=== PATIENT | female | born 1960 | race Caucasian/White ===

== ENCOUNTER 2020-06-07 03:24 | Emergency (ER) | payer OTHER, SELFPAY ==
--- NOTE | ~2020-06-07 | XR_ITS ---
XR abdomen/kub 1V 06/07/2020 04:19 Indication: Kidney stone Procedure: KUB Comparison: CT dated 06/07/2020 Findings: There is a 5 mm proximal left ureteral stone at the L4 level just above the transverse proc ess. Bowel gas pattern is nonobstructive. Moderate colonic fecal loading. No acute osseous abnormalit y. There are cholecystectomy clips. Impression: 1: 5 mm proximal left ureteral stone. Reviewed, dictated and finalized at location A. Impression: 1: 5 mm proximal left ureteral stone.
--- NOTE | ~2020-06-07 | CT_ITS ---
EXAMINATION: CT abdomen pelvis wo con DATE: 06/07/2020 03:54 INDICATION: Kidney stone TECHNIQUE: Computed tomography (CT) of the abdomen and pelvis was performed without intravenous contr ast. The dose-length product was 1663.80 mGy-cm. Automated exposure control and iterative reconstruct ion technique were employed. COMPARISON: None. FINDINGS: Lung bases unremarkable. No significant pleural or pericardial effusion. Status post cholec ystectomy. There is pneumobilia. There is a 4 mm proximal left ureteral stone with hydronephrosis and moderate perinephric stranding. No abnormal pelvic masses or fluid collections. Nonobstructive bowel gas pattern. The spleen, pancreas, adrenal glands and right kidney are unremarkable. No free air or free fluid. IMPRESSION: 1. Proximal left ureteral stone measuring 4 mm with mild left hydronephrosis and moderate perinephric stranding. Reviewed, dictated and finalized at location A. IMPRESSION: 1. Proximal left ureteral stone measuring 4 mm with mild left hydronephrosis an d moderate perinephric stranding.
[2020-06-07 03:30] VITALS: BP 140/97; PULSE 82; RESP 14; TEMP 36.3; O2SAT 99
--- NOTE | 2020-06-07 03:38 | ED.ABDPAIN ---
HPI - Abdominal Pain General Chief Complaint: Abdominal Pain Stated Complaint: left abd/side pain Time Seen by Provider: 06/07/20 03:28 Source: RN notes reviewed History of Present Illness HPI narrative: Patient presents emergency department from home for abdominal pain. Patient states symptoms began at approximately 0030. Patient states pain is located left lower quadrant radiates around the left flank. Described as sharp and stabbing associated nausea. Patient states she does have a history of previous kidney stones and feels like prior. Denies any fevers or chills chest pain shortness of breath diarrhea or any other symptoms Related Data Allergies Allergy/AdvReac Type Severity Reaction Status Date / Time No Known Allergies Allergy Verified 05/27/19 11:40 Review of Systems Review of Systems: Narrative: Gen.: Denies fevers or chills ENT: Denies congestion Respiratory: Denies shortness of breath or cough CV: Denies chest pain or palpitations GI: HPI denies burning, urgency, frequency or hematuria Musculoskeletal: Denies back pain or muscle pain Neuro: Denies numbness, tingling, weakness or focal weakness Skin: Denies rash Except as documented, all other systems reviewed and negative [facility] Past Medical History Medical History (Updated 06/07/20 @ 06:03 by Francisco Souza DO) Hypertension Social History Social History (Updated 06/07/20 @ 03:39 by Francisco Souza DO) Smoking status: Never smoker Exam Narrative: Exam Narrative: APPEARANCE: No acute distress, nontoxic, resting in bed HEENT: Normocephalic, atraumatic, OMM RESPIRATORY: No respiratory distress, clear to auscultation bilaterally with no rhonchi wheezing or rales CARDIOVASCULAR: RRR s murmur ABDOMINAL: Soft, nondistended, tender palpation of left lower quadrant left upper quadrant, no tenderness right upper quadrant right lower quadrant, no rebound or guarding, left flank tenderness MUSCULOSKELETAl: Moves all extremities. No clubbing, cyanosis or edema. NEURO: Awake and alert. Following commands, speech normal, no focal deficits SKIN:: Warm, dry. Normal Color PSYCHIATRIC: Normal affect/mood Course Course Emergency Course: Called and discussed with urology Dr. Camarillo presentation work-up. Discussed CT scan showing stone as well as UA. At this time if patient's pain is controlled feels patient may be discharged with Cipro and follow-up as an outpatient Patient states he is feeling much better at this time. Discussed options of discharge home versus admission and prefers discharge at this time discussed with patient results of workup and diagnosis. Discussed need for follow-up with primary care, proper use of medication, and reasons to return to the emergency department. Patient understands and agrees to current treatment plan Vital Signs Vital signs: Vital Signs Temperature 97.4 F L 06/07/20 03:30 Pulse Rate 82 06/07/20 03:30 Respiratory Rate 14 06/07/20 03:30 Blood Pressure 140/97 H 06/07/20 03:30 Pulse Oximetry 99 06/07/20 03:30 Temperature 97.4 F L 06/07/20 04:36 Pulse Rate 103 H 06/07/20 05:27 Respiratory Rate 16 06/07/20 05:27 Blood Pressure 135/59 L 06/07/20 05:27 Pulse Oximetry 97 06/07/20 05:27 MDM - Abdominal Pain Lab Data Result diagrams: 06/07/20 03:34 06/07/20 03:34 Labs: Lab Results 06/07/20 06/07/20 06/07/20 Range/Units 03:34 03:34 04:52 WBC 9.5 (4.5-10.0) K/mm3 RBC 4.70 (4.2-5.4) M/mm3 Hgb 14.6 (12.0-15.0) g/dL Hct 42.5 (37.0-47.0) % MCV 90.4 (80-100) fl MCH 31.1 (26-34) pg MCHC 34.4 (32-36) g/dl RDW 11.9 (11.5-14.5) % Plt Count 206 (150-375) k/mm3 MPV 10.4 (7.4-10.4) fl Immature Gran % (Auto) 0.3 (0-0.5) % Neut % (Auto) 78.2 H (45.5-73.1) % Lymph % (Auto) 18.2 L (18.3-44.2) % Jackson % (Auto) 3.2 (2.6-8.5) % Eos % (Auto) 0.0 (0-4.4) % Baso % (Auto) 0.1 L (0.2-1.2) %
[2020-06-07] MEDS: ONDANSETRON INJ 4 MG/2 ML VIAL IV PUSH (03:41)
[2020-06-07 03:42] LABS: Basophils Percent Auto 0.1 % (0.2-1.2); Hematocrit 42.5 % (37.0-47.0); Hemoglobin 14.6 g/dL (12.0-15.0); Immature Granulocyte Absolute 0.03 K/mm3 (0.00-0.031); Immature Granulocyte Percent A 0.3 % (0-0.5); Lymphocytes Absolute Auto 1.72 K/mm3 (0.9-3.2); Lymphocytes Percent Auto 18.2 % (18.3-44.2); Mean Corpuscular HGB Conc 34.4 g/dl (32-36); Mean Corpuscular Hemoglobin 31.1 pg (26-34); Mean Corpuscular Volume 90.4 fl (80-100); Mean Platelet Volume 10.4 fl (7.4-10.4); Monocytes Absolute Auto 0.3 K/mm3 (0.1-0.6); Monocytes Percent Auto 3.2 % (2.6-8.5); Neutrophils Absolute Auto 7.4 K/mm3 (1.3-6.7); Neutrophils Percent Auto 78.2 % (45.5-73.1); Platelet Count Result 206 k/mm3 (150-375); Red Cell Distribution Width 11.9 % (11.5-14.5); White Blood Count 9.5 K/mm3 (4.5-10.0)
[2020-06-07] MEDS: MORPHINE SULFATE (*CRX) 4 MG/ML INJ IV PUSH (03:46)
[2020-06-07] MEDS: SODIUM CHLORIDE 0.9% IV 1,000 ML 999 ML IV CONT (03:47)
[2020-06-07 03:53] LABS: Anion Gap 8 mmol/L (8-16); Blood Urea Nitrogen 16 mg/dL (7-17); Calcium 9.7 mg/dL (8.4-10.2); Carbon Dioxide 28 mmol/L (22-30); Chloride 103 mmol/L (98-107); Estimated CRCL calculation 70 ml/min; Estimated Glomerular Filt Rate 57; Glucose 128 mg/dL (65-105); Potassium 3.8 mmol/L (3.4-5.0); Sodium 139 mmol/L (137-145)
[2020-06-07] MEDS: KETOROLAC 30 MG/ML VIAL (*BKC) IV PUSH (04:06)
[2020-06-07] MEDS: TAMSULOSIN HCL 0.4 MG CAPSULE PO (04:07)
--- NOTE | 2020-06-07 04:12 | PC.NURSE ---
Patient states she is in too much pain at this moment and is unable to urinate.
[2020-06-07 04:16] VITALS: TEMP 36.3
[2020-06-07 04:36] VITALS: TEMP 36.3
[2020-06-07 05:11] LABS: Add Urine Microscopic? YES; Appearance Urine Cloudy (Clear); Bacteria Urine Trace /hpf; Bilirubin Urine Negative (Negative); Blood Urine 3+ (Negative); Color Urine Yellow (Yellow); Glucose Urine UA Negative (Negative); Ketones Urine Negative (Negative); Leukocyte Esterase Ur 2+ LEU/UL (Negative); Mucus Urine Rare /lpf; Nitrate Urine Negative (Negative); Protein Urine 1+ mg/dL (Negative); RBC Urine >75 /hpf (0-2); Specific Grav Ur 1.017 (1.001-1.035); Squamous Epithelial Cell Urine Rare /hpf (Few); Urobilinogen Urine Negative mg/dL (<2.0); WBC Urine >75 /hpf
[2020-06-07 05:27] VITALS: BP 135/59; PULSE 103; RESP 16; O2SAT 97
[2020-06-07 06:22] VITALS: BP 150/54; PULSE 97; RESP 16; TEMP 36.6; O2SAT 100
== END 2020-06-07 06:24 | disposition home or self-care (01) ==
PROVIDERS: Emergency Provider Emergency Medicine; PCP Internal Medicine
DX: N13.2 Hydronephrosis with renal and ureteral calculous obstruction (principal); N39.0 Urinary tract infection, site not specified; I10 Essential (primary) hypertension
CPT/HCPCS: 36415; 74018; 74176; 80048; 81001; 85025; 87077; 87086; 87088; 87186; 96361; 96365; 96375; 99284; A9270; J0696; J1885; J2270; J2405; J7030

== ENCOUNTER → 2023-04-10 11:58 | Outpatient (CLI) | payer OTHER, SELFPAY ==
--- NOTE | ~2023-04-10 | XR_ITS ---
EXAM: XR abdomen/kub 1V DATE: 04/10/2023 12:39 HISTORY: KIDNEY STONE . COMPARISON: X-ray abdomen and CT abdomen pelvis 06/07/2020. FINDINGS: Clear lung bases. Cholecystectomy clips. Normal bowel gas pattern. No organomegaly. No abn ormal abdominal calcification. Lumbar degenerative disc disease. No acute osseous abnormality. IMPRESSION: No radiographic evidence of nephrolithiasis. Reviewed, dictated and finalized at location K.
--- NOTE | ~2023-04-10 | MM_ITS ---
EXAMINATION: MM screening jesse BI w meghann HISTORY: Screening mammogram TECHNIQUE: Craniocaudal and mediolateral oblique 3-D tomosynthesis images were obtained and synthetic 2-D images were generated. CAD analysis was submitted and interpreted. COMPARISON: 11/24/2018, 09/17/2016, 10/13/2014 bilateral screening mammogram examinations BREAST PARENCHYMAL COMPOSITION: There are scattered areas of fibroglandular density. FINDINGS: Approximate 4.8 x 12 mm circumscribed opacity is noted in the outer mid left breast (MLO To mosynthesis image 24/), possibly related to skin lesion at the outer left breast on CC view. Diagno stic left mammogram is recommended, with ultrasound if required.. Otherwise there is no evidence of suspicious mass, calcification, or architectural distortion to sugg est malignancy in either breast. There has been no other suspicious interval change. IMPRESSION: 1. 4.8 x 12 mm circumscribed opacity, outer mid left breast on MLO view 2. Diagnostic left mammograms back or alignment, with ultrasound if required BI-RADS Category 0: Incomplete: Needs additional imaging evaluation. Reviewed, dictated and finalized at location A.
== END ==
PROVIDERS: PCP Obstetrics & Gynecology; Visit Provider Internal Medicine
DX: Z12.31 Encounter for screening mammogram for malignant neoplasm of breast (principal); R92.8 Other abnormal and inconclusive findings on diagnostic imaging of breast; N20.0 Calculus of kidney
CPT/HCPCS: 74018; 77063; 77067

== ENCOUNTER → 2023-05-05 07:40 | Outpatient (CLI) | payer OTHER, SELFPAY ==
--- NOTE | ~2023-05-05 | MM_ITS ---
EXAMINATION: MM diagnostic jesse LT w meghann HISTORY: Left breast mass on screening mammogram TECHNIQUE: Additional 3-D tomosynthesis images of the left breast were performed and synthetic 2-D im ages were generated. CAD analysis was submitted and interpreted. COMPARISON: 04/10/2023, 11/24/2018, 09/17/2016, 10/13/2014 BREAST PARENCHYMAL COMPOSITION: There are scattered areas of fibroglandular density. FINDINGS: With spot compression, the asymmetry in the left breast has an appearance similar to prior mammograms. There has been no suspicious interval change. IMPRESSION: 1. No mammographic evidence of malignancy. 2. Recommend routine screening mammography in one year. BI-RADS Category 2: Benign finding(s). Reviewed, dictated and finalized at location A.
== END ==
PROVIDERS: PCP Obstetrics & Gynecology; Visit Provider Internal Medicine
DX: R92.8 Other abnormal and inconclusive findings on diagnostic imaging of breast (principal)
CPT/HCPCS: 77061; 77065; G0279

== ENCOUNTER 2024-10-23 00:20 | Emergency (ER) | payer OTHER, SELFPAY ==
--- OUTSIDE RECORDS SUMMARY | 2024-10-23 00:22 | XMS_ITS | Data Portability ---
Author Organization [facility] Address [address] [place] [address] [place] [address] Care Team Providers Care Plush Dresser Name Role Phone MARKUS MOTA Primary Care Provider Assessment Encounter Date Assessment Date Assessment LastModified by Organization Details LastModified Time 05/05/2020 05/05/2020 Annual gynecological exam performed. Patient will come back in a year unless there are new symptoms. [email or web address] Not available 05/05/2020 12:39:00 02/14/2023 02/14/2023 Annual gynecological exam performed. Patient will come back in a year unless there are new symptoms. Not available 02/14/2023 09:42:36 Plan of Treatment Reminders Order Date Submit Date Provider Last Modified By Organization Details Last Modified Time Details Appointments None recorded. Lab urinalysis , dipstick 2019 020 [email or web address] [place], [address], [place], [address], 0 16:15:11 Referral gastroente rologist referral - Screening Colonoscop yPlease contact this patient to schedule an appointmen t.If you have any questions, please call [phone].Than k richard,Denia , Referral's 2022 023 [facility], [address], [address], [place], [address], 3 14:35:17 Procedures None recorded. Surgeries None recorded. Imaging DEXA, axial skeleton + vertebral fracture assessment 2019 020 [facility], [address], [place], [address], 1 05:02:55 MAMMO, screening, bilateral 2022 023 [facility], [address], [place], [address], 3 05:01:50 Medication Orders None recorded. Patient TargetsNo targets recorded. Patient Instructions Encounter Date Encounter Id Patient Instructions Last Modified By Organization Details Last Modified Time 05/05/2020 [id number] [email or web address] Not available 13:59:18 Reason for Referral Sampler Radioactive Waste Referral for Screening for malignant neoplasm of colon Screening Colonoscopy Screening ColonoscopyPlease contact this patient to schedule an appointment.If you have any questions, please call [phone].Thank you,Denia Referral's Referring Physician: Carolynn Buchanan, FREIGHT DISPATCHER, Encounter Date: 02/14/2023 Results Created Date Observation Date Name Description Value Unit Range Abnormal Flag Note LastModifiedBy Organization Detail LastModifiedTime 04/16/2004/19/2020 cultu re, urine specimen source Urine - Void Not Available [facility] [employer] [address], [place], [address], 04/19/2020 14:07:09 04/16/20 20 04/19/2020 cultu re, urine culture, urine See Below See Micro biolo gy Repor t Not Available [facility] ([facility] [employer]) [facility] [address], [place], [address], 04/19/2020 14:07:09 04/16/2004/19/2020 cultu re, urine escherichia coli 15,000 -25,00 0 CFU/ml Escher ichia coli Not Available [facility] ([facility] [employer]) [address] [place] [address] [address], [place], [address], 04/19/2020 14:07:09 04/16/20 20 04/19/2020 cultu re, urine sensitivity panel See Below ___ Organ ism E. coli Antib iotic INTER P ___ Amika kristal S Amp/S ulbac russell I Ampic illin R Aztre onam S Cefaz celeste S Cefep lisa S Cefox itin S Cefta zidim e S Ceftr iaxon e S Cefur oxime S Cipro floxa kristal S Ertap enem S Genta micin S Imipe nem S Levof loxac in S Merop enem S Nitro furan toin S Piper acill in/Ta zo S Tetra cycli ne S Tigec yclin e S Tobra mycin S Trime th/Vega lfa R __ S=NAOMI CEPTI BLE I=INT ERMED IATE R=RES ISTAN T Not Available [facility] ([facility]) [address] , [place], [address], 04/19/2020 14:07:09 04/16/20 20 04/16/2020 urina lysis , dipst ick Leukocytes +1 Not Available [facility] [address], [place], [address], 04/16/2020 09:51:34 04/16/20 20 04/16/2020 urina lysis , dipst ick Blood +++ Not Available [place] [address], [place], [address], 04/16/2020 09:51:34 05/05/20 20 05/07/2020 pap, LB Pap test thin prep Negati ve for Intrae pithel ial Lesion or Malign caro normal ACCES SURINDER #: [id number] Sourc e: Cervi damaris/E ndoce rvica l LMP: 09/11 Date Taken : 05/05 Speci men Type: ThinP rep Vial Date Repor roseann: 2019 Clini damaris Data: Cytot ech: Feli Virgen , CT( CP) Date Repor roseann: 2019 Speci men Adequ acy: Satis facto ry for evalu ation Gener al Categ oriza tion: NEGAT [place] FOR INTRA EPITH ELIAL LESIO N OR MALIG JOCELINE Inter preta tion/ Resul t: Atrop hy This speci men has been hyun zed by the ThinP rep Imagi ng Syste m, an inter activ e compu ter syste m which [facility] of ThinP rep Pap Test slide sJu whittaker imagi ng, the slide was revie wed by a Cytot echno logis t and/o r Patho logis t. D N A A S S A Y S R E P O R T TEST NAME RESUL TS ----- ---- ----- -- HPV High Risk Scretish n (TMA) ThinP rep Vial The human papil lomav irus (HPV) High Risk Airam n is an FDA-a pprov ed in-vi tro ampli fied nucle ic acid test for the quali tativ e detec tion of E6/E7 viral mRNA. Resul ts shoul d be corre lated with patie nt prese ntati on, histo ry, cervi damaris cytol ogy and other clini damaris and labor atory findi ngs. See https ://[employer]/s ites/ defau lt/fi 018-0 /- 03095 _002_ 01.pd f for man er infor whitney n. Test perfo rmed by [employer] [facility], d/b/a [facility], [address], [place] [address] , [place]a Crawford ra, , Labor atory Dire tor. HPV High Risk *HPV NOT DETEC ROSEANN (TYPE S 16, 18, 31, 33, 35, 39, 45, 51, 52, 56, 58, 59, 66, 68) *HPV: The human papil lomav irus (HPV) High Risk Airam ahmadi is an FDA-a pprov ed in-vi tro ampli fied nucle ic acid test for the quali tativ e detec tion of E6/E7 viral mRNA. Resul ts kale colbert be corre lated with patitish nt prese ntati on, histo ry, cervi damaris cytol ogy and other clini damaris and labor atory findi ngs. See https ://[employer]/s ites/ defau lt/fi 018-0 /AW- 80535 _002_ 01.pd f for man er infor whitney n. Test perfo rmed by [employer] [facility], d/b/a Abbe rou[facility], [address], [place] [address] , [place] ra, , Labor atory Dire tor. End of Repor t Techn ical servi glenda provi ded by [employer] [facility], d/b/a [facility], [address] [place] [address] Raghu Yost MD, Labor atory Dire tor. Case revie wed and diagn osis rende red at [employer] [facility], d/b/a [facility], [address] [place] [address] Raghu Yost MD, Labor atory Dire tor. CONFI DENTI AL Not Available [facility] ([facility]) [address], [place], [address], 05/07/2020 14:49:49 05/05/20 20 05/07/2020 HPV DNA, high- risk HPV high risk NOT DETECT ED normal Not Available [facility] ([facility]) [address], [place], [address], 05/07/2020 14:49:50 02/15/20 23 02/14/2023 IMAGE GUIDE D PAP AND HPV REGAR DLESS image guided Pap, HPV regardless of Pap result SEE RESULT S BELOW CASE REPOR T: Cytol ogy Gynec ologi damaris Repor t Case: [id number] Autho blanca arechiga Provi jose: Jerry Shah Colle cted: 02/14 1405 WIRE DRAWING SETTER Order ing Locat ion: [place] [facility] Recei rolly: 02/15 1943 First Scree n: Jacinda Bullard, CT Speci men: Scree haritha Pap - Image d, Cervi x STATE MENT OF ADEQU ACY: Satis facto ry for evalu ation Trans forma tion zone compo nent canno t be defin itive ly ident ified due to the prese nce of atrop hy or other hormo nal merino es FINAL DIAGN OSIS: Negat [place] for Intra epith elial Lesio n or Hilary au (NIL) . Atrop hic cell sherley main. Elect sorin carter d by Jacinda Bullard, CT on 2022 at 7:15 AM ----- ----- ----- ----- ----- ----- ----- ----- ----- ----- ----- ----- ----- ----- ----- ----- ----- ---- HPV RESUL TS: HPV mRNA E6/E7 : No HPV mRNA Detec roseann NOTE: This high risk HPV mRNA assay detec ts fourt een high- risk HPV types (16, 18, 31, 33, 35, 39, 45, 51, 52, 56, 58, 59, 66, 68) witho ut diffe renti ation . COMME NT: This speci men was revie wed by a Cytot echno logis t and/o r Patho logis t (as indic ated in this repor t) after evalu ation using the Thinp rep Imagi ng Syste m. CLINI DAMARIS INFOR MATIO N: Menst rual Statu s: LMP (if appli cable ): Clini damaris Histo ry/Pr eviou s Pap: Type of Neopl sachin (if appli cable ): Signi fican t Clini damaris Findi ngs: Other Histo ry: Hormo piter (if appli cable ): PAP EDUCA CANDICE L NOTE: The Pap Test is a scree haritha test with an inher ent false negat [place] rate. Liqui d-bas ed sampl ing may decre ase, but will not elimi nina, false negat [place] resul ts. A negat [place] resul t does not precl ude the prese nce and/o r devel opmen t of disea se, since the prese nce of abnor mal cells in the sampl e depen ds on the locat ion of the lesio n and sampl ing techn ique. Justo nued regul ar scree haritha is the best metho d of cance r preve ntion . If repor roseann cytol ogic findi ng do not corre late with physi damaris and/o r histo rical findi ngs, furth er inves tigat ion is recom devin d, as clini michael hartman nted. Not Available [facility] (Lab) [address], [place], [address], 02/19/2023 08:19:42 04/10/20 23 04/10/2023 imagi ng/di agnos tic resul t No observ ation record ed. [facility] [address], [place], [address], 04/11/2023 10:24:55 04/10/20 23 04/10/2023 imagi ng/di agnos tic resul t No observ ation record ed. [facility] [address], [place], [address], 04/11/2023 10:26:45 04/10/20 23 04/10/2023 imagi ng/di agnos tic resul t No observ ation record ed. [facility] [address], [place], [address], 04/11/2023 10:28:08 05/05/20 23 05/05/2023 imagi ng/di agnos tic resul t No observ ation record ed. [facility] [address], [place], [address], 05/05/2023 15:12:07 05/05/20 23 05/05/2023 MAMMO , diagn ostic , digit al, unila teral No observ ation record ed. [email or web address] [facility] [address], [place], [address], 07/10/2023 14:41:56 Result Notes None recorded. Problems Name Problem SNOMED Code Status Onset Date Resolution Date Notes Provider Name and Address Organization Details Recorded Time Screening for malignant neoplasm of cervix Active 2011 Screening for malignant neoplasms of the cervix;Rec orded Elsewhere: No Locatio n: [facility] rce: EHR Chroni c: N Practice ID: 0001 Billa ble Time: 06:00:00 PM Not Available [facility] 0 18:57:08 Screening for malignant neoplasm of rectum Active 2014 Encounter for screening for malignant neoplasm of rectum;Rec orded Elsewhere: No Locatio n: [facility] rce: EHR Chroni c: N Practice ID: 0001 Billa ble Time: 03:30:00 PM Not Available [facility] 0 18:57:08 Cyst of ovary 58234453 Active 2012 Other and unspecifie d ovarian cyst;Recor ded Elsewhere: No Locatio n: [facility] rce: EHR Chroni c: N Practice ID: 0001 Billa ble Time: 09:30:00 AM Not Available [facility] 0 18:[facility]:[address] Concept Active 2015 Encntr for engine 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 exam (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) (routine) w/o abn findings;R ecorded Elsewhere: No Locatio n: [facility] rce: EHR Chroni c: N Practice ID: 0001 Billa ble Time: 08:30:00 AM Not Available [facility] 0 18:57:09 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;Stepan rded Elsewhere: No Locatio n: [facility] rce: EHR Chroni c: N Practice ID: 0001 Billa ble Time: 03:30:00 PM Not Available [facility] 0 18:57:09 Leukopeni a 45906379 Active 2010 LEUKOCYTOP ENIA NOS;Practi ce ID: 0001 Not Available [facility] 0 18:57:09 Microscop ic hematuria 209590987 Active 2010 HEMATURIA MICROSCOPI C;Practice ID: 0001 Not Available [facility] 0 18:57:09 Specializ ed medical examinati on Active 2010 Routine gynecologi damaris examinatio n;Practice ID: 0001 Not Available [facility] 0 18:57:09 Screening for malignant neoplasm of colon Active 2010 Special screening for malignant neoplasms, colon;Prac jorge ID: 0001 Not Available [facility] 0 18:57:09 Removal of intrauter ine device Active 2011 REMOVAL OF IUD;Practi ce ID: 0001 Not Available [facility] 0 18:57:09 Dysfuncti onal uterine bleeding Active 2012 DUB;Practi ce ID: 0001 Not Available [facility] 0 18:57:09 Radiology result abnormal 200627943 Active 2012 Thickened Endometria l Stripe;Pra ctice ID: 0001 Not Available [facility] 0 18:57:[address] Concept Active 2014 Encntr for general adult medical exam w/o abnormal findings;Jorden falcon ID: 0001 Not Available [facility] 0 18:57:10 Hypertrop hic condition of skin 00338091 Active 2014 Other hypertroph ic disorders of the skin;Pract ice ID: 0001 Not Available [facility] 0 18:57:11 Evaluatio n finding Active 2017 Hematuria, unspecifie d;Practice ID: 0001 Not Available [facility] 0 18:57:[address] Concept Active 2017 Encounter for general adult medical exam w abnormal findings;Jorden falcon ID: 0001 Not Available [facility] 0 18:57:11 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 Procedures Surgical History Date Name Laterality Status Provider Name and Address Organization Details Recorded Time 020 Date of Last [facility] 09:44:40 019 Date of Last [facility]ammogram [facility] 02/14/2023 09:45:29 018 colonoscopy completed Carolynn Buchanan HATTIE- [address], [place], [address], [facility] 02/14/2023 09:55:35 Dilation and Curettage completed [facility] 05/05/2020 12:42:47 Tubal Ligation completed Luz [facility] 05/05/2020 12:42:52 Cholecystectomy completed [facility] 05/05/2020 12:42:58 Hysteroscopy completed [facility] 05/05/2020 12:43:03 resection of polyp completed [facility] 05/05/2020 12:43:16 Imaging Results Imaging Date Name Status LastModified by Organiz ation Details LastModified Time 04/10/2023 imaging/diagnos tic result completed [facility] [address], [place], [address], 04/11/2023 10:24:55 04/10/2023 imaging/diagnos tic result completed [facility] [address], [place], [address], 04/11/2023 10:26:45 04/10/2023 imaging/diagnos tic result completed [facility] [address], [place], [address], 04/11/2023 10:28:08 05/05/2023 imaging/diagnos tic result completed [facility] [address], [place], [address], 05/05/2023 15:12:07 05/05/2023 MAMMO, diagnostic, digital, unilateral completed [address], [place], [address], 07/10/2023 14:41:56 Procedure Notes None recorded. Medical Equipment None Reported. Allergies Allergen ID Allergen Name Allergen Category Reaction Reaction Severity Criticality Documentation Date Start Date Code Code System Note Provider Name and Address Organization Details Recorded Time 1581 codeine medicatio n Not available Not available Not available 04/16/2020 1370 RxNorm Yasmeen Ramires lynn [facility] 0 09:47:37 Medications Name Sig Start Date Stop Date Status Note LastModified by Organization Details LastModified Time carvedilo l 6.25 mg tablet TAKE 1 TABLET BY MOUTH TWICE A DAY active Not Available Not Available No t Available doxycycli ne hyclate 100 mg capsule TAKE 1 CAPSULE BY MOUTH TWICE A DAY 02/14 completed Not Available Not Available Not Available Coreg 3.125 mg tablet take 1 tablet by oral route 2 times every day with food 10/23 completed Prescrib ed Elsewher e: Yes Loca tion: [facility] odify By: [email or web address] mathias DateTime : 05/02/20 12 06:00:00 PM Not Available Not Available Not Available azithromy kristal 250 mg tablet TAKE 2 TABLETS BY MOUTH TODAY, THEN TAKE 1 TABLET DAILY FOR 4 DAYS 02/14 completed Not Available Not Available Not Available Synthroid 125 mcg tablet 02/14 completed Not Available Not Available Not Available Niaspan 500 mg tablet,ex tended release take 1 tablet by oral route every day at bedtime after a low-fat snack 02/14 completed Prescrib ed Elsewher e: Yes Loca tion: [facility]ify By: kyrie Bertrando unter DateTime : 05/02/20 12 06:00:00 PM Not Available Not Available Not Available tramadol 50 mg tablet TAKE 1 TABLET BY MOUTH THREE TIMES A DAY NEEDED (NEED APPOINTM ENT WITH ) active Not Available Not Available No t Available triamcino lone acetonide 0.1 % topical cream APPLY THIN COAT TO AFFECTED AREA TWICE A DAY 02/14 completed Not Available Not Available Not Available Nexium 20 mg capsule,d elayed release take 1 capsule by oral route every day 02/14 completed Prescrib ed Elsewher e: Yes Loca tion: [facility]ify By: kyrie buck Enco unter DateTime : 05/02/20 12 06:00:00 PM Not Available Not Available Not Available benzonata te 100 mg capsule TAKE 1 CAPSULE BY MOUTH THREE TIMES A DAY active Not Available Not Available No t Available esomepraz ole magnesium 40 mg capsule,d elayed release TAKE ONE CAPSULE BY MOUTH ONCE DAILY NEEDED active Not Available Not Available No t Available telmisart an 80 mg tablet 05/05 completed Not Available Not Available Not Available levothyro xine 150 mcg tablet TAKE 1 TABLET BY MOUTH EVERY DAY IN THE MORNING (NEED FOLLOW-U P APPOINTM ENT WITH ) active Not Available Not Available No t Available telmisart an 20 mg tablet 05/05 completed Not Available Not Available Not Available Transderm -Scop 1 mg over 3 days transderm al patch apply 1 patch by transder mal route 02/14 completed Prescrib ed Elsewher e: No Locat ion: [facility] odify By: anabel almaraz DateTime : 01/08/20 13 05:00:00 PM Not Available Not Available Not Available epinephri ne 0.3 mg/0.3 mL injection , auto-inje ctor DIRECTED active Not Available Not Available No t Available methylpre dnisolone 4 mg tablets in a dose pack TAKE 6 TABLETS ON DAY 1 DIRECTED ON PACKAGE AND DECREASE BY 1 TAB EACH DAY FOR A TOTAL OF 6 DAYS active Not Available Not Available No t Available albuterol sulfate HFA 90 mcg/actua tion aerosol inhaler INHALE 2 PUFFS BY MOUTH EVERY 8 HOURS NEEDED. active Not Available Not Available No t Available fluticaso ne propionat e 50 mcg/actua tion nasal spray,naomi pension USE 1 SPRAY INTO THE AFFECTED NOSTRIL( S) ONCE DAILY NEEDED 02/14 completed Not Available Not Available Not Available loratadin e 10 mg tablet 05/05 completed Not Available Not Available Not Available Activella 1 mg-0.5 mg tablet take 1 tablet by oral route every day 02/14 completed Prescrib ed Elsewher e: No Locat ion: [facility] odify By: cmedical Encount er DateTime : 04/01/20 15 11:35:55 AM Not Available Not Available Not Available Vitamins and Minerals tablet active Prescrib ed Elsewher e: Yes Loca tion: [facility] odify By: cmedical Encount er DateTime : 01/08/20 13 05:00:00 PM Not Available Not Available Not Available olmesarta n 40 mg tablet TAKE 1 TABLET BY MOUTH EVERY DAY active Not Available Not Available No t Available nitrofura ntoin monohydra te/macroc rystals 100 mg capsule Take 1 capsule every 12 hours by oral route with meals for 10 days. 05/05 completed Not Available Not Available Not Available Boostrix Tdap 2.5 Lf unit-8 mcg-5 Lf/0.5 mL intramusc ular syringe 05/05 completed Not Available Not Available Not Available Nexium 02/14 completed Not Available Not Available Not Available Activella 0.5 mg-0.1 mg tablet TAKE 1 TABLET DAILY 02/14 completed Prescrib ed Elsewher e: No Locat ion: [facility] odify By: kaylen almaraz DateTime : 12/21/19 18 03:35:26 PM Not Available Not Available Not Available Bystolic 2.5 mg tablet take 2 tablet by oral route every day 02/14 completed Prescrib ed Elsewher e: Yes Loca tion: [facility]ify By: alyx mathias DateTime : 10/23/19 13 10:15:00 AM Not Available Not Available Not Available Bystolic 5 mg tablet 05/05 completed Not Available Not Available Not Available Vitals Date Recorded Body height Body mass index (BMI) Body weight Provider Name and Address Organization Details Last Updated DateTime 02/14/2023 162.56 cm 45 kg/m2 168926.2 g Jaimie Rodrigez [facility] 02/14/2023 09:43:08 Date Recorded Systolic blood pressure Diastolic blood pressure Provider Name and Address Organization Details Last Updated DateTime 02/14/2023 122 mm[Hg] 30 mm[Hg] Carolynn Buchanan, [facility] [address], [place], [address], [facility] 02/14/2023 09:48:18 Date Recorded Body height Body mass index (BMI) Body weight Systolic blood pressure Diastolic blood pressure Provider Name and Address Organization Details Last Updated DateTime 05/05/2020 162.56 cm 47.5 kg/m2 461533.0 9 g 143 mm[Hg] 82 mm[Hg] Luz Hammer [facility] 12:51:45 Social History Question Answer Notes LastModified by Organizat ion Details LastModified Time Tobacco Smoking Status Never Smoker Not Available [facility] 07/14/2020 03:28:11 In The 14 Days Before Symptom Onset, Have You Had Close Contact With A Laboratory-confirm ed COVID-19 While That Case Was Ill? No Information n ot available 02/14/2023 In The 14 Days Before Symptom Onset, Have You Had Close Contact With A Person Who Is Under Investigation For COVID-19 While That Person Was Ill? No Information not available 02/14/2023 Have You Been To An Area Known To Be High Risk For COVID-19? No Information not available 02/14/2023 Sex: Unknown Functional Status None recorded. Mental Status None recorded. Family History Relationship Description Onset Age of this Age Resolved Age Notes LastModified by Organization Details LastModified Time Maternal Aunt Hypertensive disorder [email or web address] Not available 2019 12:41:14 Maternal Aunt Carcinoma in situ of breast [email or web address] Not available 2019 12:41:30 Maternal Aunt Family history of cancer of colon [email or web address] Not available 2019 12:42:01 Maternal Aunt Disorder of thyroid gland [email or web address] Not available 2019 12:42:24 Maternal Aunt Carcinoma in situ of uterus [email or web address] Not available 2019 12:42:34 Mother Hypertensive disorder [email or web address] Not available 2019 12:41:14 Mother Suspected cervical cancer [email or web address] Not available 2019 12:41:48 Mother Disorder of thyroid gland [email or web address] Not available 2019 12:42:24 Maternal Grandmother Hypertensive disorder [email or web address] Not available 2019 12:41:14 Paternal Aunt Suspected cervical cancer [email or web address] Not available 2019 12:41:48 Notes:Maternal aunt: Thyroid disease, Cancer, breast, Cancer, colon, Uterine Cancer, HTN, HD, [place] Maternal grandmother: Hypertension, DMNID Mother: Thyroid disease, Cancer, cervical, Hypertension, A&W Paternal aunt: Cancer, cervical Medical History Condition Response Allergies (Food, seasonal, environmental ) Y Acid Reflux (GERD) Y Thyroid Problems Y Hypertension Y Gynecological History Statement/Question Response Date of Last Colonoscopy Date of Last Mammogram 11/27/2018 Sexually Active? N STIs/STDs N Menses Monthly N HPV Vaccine N Date of Last Pap Smear 05/05/2020 Sexual Problems? N Current Control Method Tubal Ligat ion LMP Unknown Obstetrics History GPAL:G 2 P 0 0 0 2 Type Value Living 2 Total 2 Past Encounters Encounter ID Performer Location Encounter Start Date Encounter Closed Date Diagnosis/Indication Diagnosis SNOMED-CT Code Diagnosis ICD10 Code Diagnosis Note [id number] Jovan Ardon MD [place] [facility] [address],[place] [address] 04/16/2020 09:21:02 04/16/2020 16:26:54 Acute urinary tract infection [id number] N39.0 [id number] Carolynn Buchanan [place] [id number],[place] [address] 05/05/2020 12:31:43 05/05/2020 16:10:06 Gynecologic examination [id number] Z01.419 Take Calcium with Vitamin D 12-1500mg daily. Do monthly self breast exams. It is advised to get annual flu shot in the fall and she could obtain at [facility]. If you haven't received the Tdap vaccine in the last 10 years you should obtain one as well. Have mammogram yearly, bone density every 2-3 years and colonoscop y every 5-10 years depending on findings and history. Engage in daily exercise of low impact aerobic exercise 45-60 minutes 4-5 times weekly. Avoid tobacco and illicit drugs as well as using moderation with alcohol intake less than 1-2 8 oz beverages daily. This lifestyle behavior pattern will lead to less health conditions and longer life span. If BMI greater than 25 weight watchers or dietary consult advised. Questions have been answered. Patient appears to understand instructio ns, but if you have any further questions call or respond to this email Screening for osteoporosis [id number] Z13.820 [id number] Carolynn Buchanan [facility] [address],[place] [address] 02/14/2023 09:26:27 02/14/2023 10:20:25 Gynecologic examination [id number] Z01.419 Take Calcium with Vitamin D 12-1500mg daily. Do monthly self breast exams. It is advised to get annual flu shot in the fall and she could obtain at [facility] or [facility]. If you haven't received the Tdap vaccine in the last 10 years you should obtain one as well. Have mammogram yearly, bone density every 2-3 years and colonoscop y every 5-10 years depending on findings and history. Engage in daily exercise of low impact aerobic exercise 45-60 minutes 4-5 times weekly. Avoid tobacco and illicit drugs as well as using moderation with alcohol intake less than 1-2 8 oz beverages daily. This lifestyle behavior pattern will lead to less health conditions and longer life span. If BMI greater than 25 weight watchers or dietary consult advised. Questions have been answered. Patient appears to understand instructio ns, but if you have any further questions call or respond to this emailPap/h pv sentSTD Screen declinedGe netic Screen discussedC olon Screen OrderedDex a Screen PCPRoutine Labs PCP Screening mammography [id number] Z12.31 Screening for malignant neoplasm of colon [id number] Z12.11 Will order & have PCP manage after this year. 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 05/05/2020 1 [employer] - CHOICE (POS II) [id number] Lotus Antony Theresa [id number] Lotus L Theresa 02/14/2023 1 [employer] - CHOICE (POS II) [id number] Lotus Antony Theresa [id number] Lotus Antony Theresa Notes Date Note Type Note Provider Name and Address Organization Details Recorded Time 05/05/2020 text/html Annual GYNReport ed bypatient.History: no gynecologic complaints Menstrual cycle:Normal menses Urinary symptoms:No hematuria; No incontinence Vulva:No genital lesion Vagina:Normal vaginal discharge Breast:No breast pain; No breast lump; No nipple discharge Current Contraception:BSO for non-cancer indications Sexual complaints:No sexual complaints; No pain during intercourse; Normal libido Menopausal Symptoms:No menopausal symptoms; Normal vaginal lubrication Psychological symptoms:No depression; No anxiety; No PMDD Preventive measures:Encourage self breast examination; Encourage regular exercise; Encourage no tobacco use; Encourage regular mammograms starting age 40; Needs to schedule mammogram; Up to date on colonoscopy screening [facility] [address], [place], [address], [facility] 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 Post-MenopausalRep orted bypatient.Menopaus al Symptoms:no menopausal symptoms; normal vaginal lubrication Vaginal Bleeding:history of menopause having occurred; no history of post menopausal bleeding Urinary Symptoms:no hematuria; no incontinence; no nocturia; no urinary frequency Vulva:no genital lesion; no vulvar atrophy Vagina:normal vaginal discharge; no vaginal atrophy Breast:no breast lump; no nipple discharge; no breast pain Sexual Complaints:no sexual complaints Psychological Symptoms:no depression; no anxiety Preventive Measures:encourage regular mammograms starting age 40; encourage self breast examination; encourage regular exercise; encourage no tobacco use; needs to schedule mammogram; needs to schedule colonoscopy [facility] [address], [place], [address], [facility] 02/14/2023 10:05:58 OBGyn Episode Ob Episode Information Episode Created Date Number of Fetuses Patient Bloodtype Patient rh Status Prepregnancy Weight lbs Domestic Partner Domestic Partner Phone Father Name Client Account Assistant Status 05/05/20 20 1 CLOSED Fetus Data First Name Last Name Admitted to NICU Weight (g) Sex Living Outcome Pediatric Complications Fetus ID Race Codes Race Delivery Type [id number] Vaginal Delivery Neil Calculation Initial Neil Date Initial Exam Date Initial Exam Provider Initial Ultrasound Date Last Menstrual Period Date Ultra Sound Weeks Gestation 0 Eighteen To Twenty Week Neil Update Ultra Sound Date Fundal Height At Umbil Quickening Date Ultra Sound Latest Weeks Gestation Final Neil Confirmed By Final Neil Confirmed Date Final Neil Date Ultra Sound Latest Days Gestation 0 0 Menstrual History Last Menstrual Date Menses Monthly On Bcp Conception Prior Menses Frequency Hcg Plus Date Menarche Onset Age Delivery Information Delivery Date Delivery Type Labor Anesthesia Weeks Gestation Incision Type Labor Labor Length Hrs Delivered By Post Complications Tubal Sterilization Discharge Date Comments 9 Discharge Information Feeding Method Contraceptive Method Maternal HG B and HCT Levels Ob Episode Information Episode Created Date Number of Fetuses Patient Bloodtype Patient rh Status Prepregnancy Weight lbs Domestic Partner Domestic Partner Phone Father Name Client Account Assistant Status 05/05/20 20 1 CLOSED Fetus Data First Name Last Name Admitted to NICU Weight (g) Sex Living Outcome Pediatric Complications Fetus ID Race Codes Race Delivery Type [id number] Vaginal Delivery Neil Calculation Initial Neil Date Initial Exam Date Initial Exam Provider Initial Ultrasound Date Last Menstrual Period Date Ultra Sound Weeks Gestation 0 Eighteen To Twenty Week Neil Update Ultra Sound Date Fundal Height At Umbil Quickening Date Ultra Sound Latest Weeks Gestation Final Neil Confirmed By Final Neil Confirmed Date Final Neil Date Ultra Sound Latest Days Gestation 0 0 Menstrual History Last Menstrual Date Menses Monthly On Bcp Conception Prior Menses Frequency Hcg Plus Date Menarche Onset Age Delivery Information Delivery Date Delivery Type Labor Anesthesia Weeks Gestation Incision Type Labor Labor Length Hrs Delivered By Post Complications Tubal Sterilization Discharge Date Comments 3 Discharge Information Feeding Method Contraceptive Method Maternal HG B and HCT Levels
--- OUTSIDE RECORDS SUMMARY | 2024-10-23 00:22 | XMS_ITS | Data Portability ---
Author Organization [facility] [employer] Address 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 Studies ordered as below. Discussed plan with patient/careg iver, who expressed understanding . Follow up as noted below. Not available 10/21/2022 10:10:50 04/10/2023 04/10/2023 Patient presented for follow up. Studies ordered as below. Discussed plan with patient/careg iver, who expressed understanding . Follow up as noted below. Not available 04/10/2023 09:39:47 08/14/2023 08/14/2023 Patient presented for follow up. Studies ordered as below. Discussed plan with patient/careg iver, who expressed understanding . Follow up as noted below. Not available 08/14/2023 09:43:18 11/20/2023 11/20/2023 Patient presented for follow up. Studies ordered as below. Discussed plan with patient/careg iver, who expressed understanding . Follow up as noted below. Not available 11/20/2023 11:19:05 08/01/2024 08/01/2024 Patient presented for follow up. Studies ordered as below. Discussed plan with patient/careg iver, who expressed understanding . Follow up as noted below. Not available 08/01/2024 12:14:58 Plan of Treatment Reminders Order Date Submit Date Provider Last Modified By Organization Details Last Modified Time Details Appointments ESTABLISH ED PATIENT 15 2024 11:00A M Kim Mota MD Not available Not available Not available Lab CMP, serum or plasma 2022 023 [facility] ([facility]), [address], [place], [facility] [place], [address], 10/28/2022 05:24:11 CBC w/ auto diff 2022 023 [facility] ([facility]), [address], [place], [facility] [place], [address], 10/28/2022 05:24:25 lipid panel w/ direct LDL, serum 2022 023 [facility] ([facility]), [address], [place], [facility] [place], [address], 10/28/2022 05:24:12 HbA1c (hemoglob in A1c), blood 2022 023 [facility] ([facility]), [address], [place], [facility] [place], [address], 10/21/2022 11:00:45 TSH + free T4, serum 2022 023 [facility] ([facility]), [address], [place] [address], [facility] [place], [address], 10/28/2022 05:24:31 CMP, serum or plasma 2022 023 [facility] ([facility]), [address], [place] [address], [facility] [place], [address], 04/17/2023 05:32:29 CBC w/ auto diff 2022 023 [facility] ([facility]), [address], [place], [place], [address], 04/17/2023 05:32:15 lipid panel w/ direct LDL, serum [facility] [address], [address], [place], [address], 04/17/2023 05:32:35 HbA1c (hemoglob in A1c), blood 2022 023 [employer] [facility] ([facility]), [address], [address], [place], [address], 04/10/2023 10:20:49 TSH + free T4, serum [facility]22 023 [facility] [address], [place], [address], 04/17/2023 05:32:33 CMP, serum or plasma 2022 023 [employer] ([facility]), [address], [address], [place], [address], 08/21/2023 05:32:28 CBC w/ auto diff 2022 023 [employer] [facility] ([facility]), [address], [address], [place], [address], 08/21/2023 05:32:31 lipid panel w/ direct LDL, serum 2022 023 [facility] [address], [address], [place], [address], 08/21/2023 05:32:42 ige, total, serum 2022 023 [facility]), [address], [place], [address], 08/14/2023 10:25:53 TSH + free T4, serum 2022 023 [facility]), [address], [facility] A, [place], [address], 08/21/2023 05:32:51 CMP, serum or plasma 2023 024 [facility], [address], [place], [address], 11/27/2023 09:13:51 CBC w/ auto diff 2023 024 [facility], [address] [place], [address], 01/04/2024 00:25:56 lipid panel w/ direct LDL, serum 2023 024 [facility], [address] [place], [address], 11/27/2023 04:05:25 ige, total, serum 2023 024 [facility], [address] [place], [address], 11/27/2023 09:13:54 TSH + free T4, serum 2023 024 [facility], [address] [place], [address], 11/27/2023 04:05:25 HbA1c (hemoglob in A1c), blood 2023 024 [facility], [address] [place], [address], 08/01/2024 13:13:34 CMP, serum or plasma 2023 024 [facility], [address] [place], [address], 08/08/2024 04:06:11 CBC w/ auto diff 2023 024 [facility], [address] [place], [address], 08/08/2024 04:06:12 lipid panel w/ direct LDL, serum 2023 024 [facility], [address] [place], [address], 08/08/2024 04:06:12 TSH + free T4, serum 2023 024 [facility], [address] [place], [address], 08/08/2024 04:06:[address] referral 2022 023 ALL[facility] Gonzalez, [address], [place], [address], 11/18/2022 05:23:58 gynecolog ist referral 2022 023 ALLY Silva MD, [address], [place], [address], 11/18/2022 05:23:26 gastroent erologist referral 2022 023 ALLY Santiago MD, [address], [address], [address], 10/16/2023 04:01:39 gastroent erologist referral 2022 023 ALLY Santiago MD, [address], [address], [address], 04/04/2024 04:12:[address] referral 2022 023 ALLY Gonzalez, [address], [place], [address], 09/13/2023 05:24:35 gastroent erologist referral 2022 023 ALLY Santiago MD, [address], [place], [address], 08/08/2024 04:04:[address] referral 2023 024 ALLY Lisa, [address], [place], [address], 12/18/2023 04:05:57 cardiolog ist referral 2023 024 [email or web address] Shmuel Mcmahan MD, [address], [place], [address], 11/20/2023 12:21:36 gastroent erologist referral 2023 024 [email or web address] Hardik Santiago MD, [address], [place], [address], 11/20/2023 12:21:36 gynecolog ist referral 2023 024 ALLY Silva MD, [address], [place], [address], 08/29/2024 05:35:57 cardiolog ist referral 2023 024 NEIL Rodriguez, [address], [place], [address], 08/01/2024 13:35:[address] referral 2023 024 ALLY Gonzalez, [address], [place], [address], 08/29/2024 05:35:57 gastroent erologist referral 2023 024 ENIL Santiago MD, [address], [place], [address], 08/01/2024 13:29:17 Procedures None recorded. Surgeries None recorded. Imaging MAMMO, screening , digital, bilateral 2022 023 [facility], [address], [place], [address], 11/04/2022 05:26:20 XR, kidney + ureter + bladder 2022 023 [facility], [address], [place], [address], 04/10/2023 17:27:08 electroca rdiogram 2022 023 [facility] [employer] [facility], [facility], [address], [place], [address], 10/26/2022 23:12:41 US, echocardi ogram 2022 023 [facility] [employer] [facility], [facility], [address], [place], [address], 11/23/2022 15:22:09 MAMMO, screening , digital, bilateral 2022 023 [facility], [address], [place], [address], 04/10/2023 17:18:36 US, echocardi ogram 2022 023 [facility] [employer] [facility], [facility], [address], [place], [address], 04/10/2023 17:18:50 electroca rdiogram 2023 024 [facility] [employer] [facility], [facility], [address], [place], [address], 11/22/2023 08:58:14 US, echocardi ogram 2023 024 [facility] [employer] [facility], [facility], [address], [place], [address], 11/20/2023 19:21:49 MAMMO, screening , digital, bilateral 2023 024 [facility], [address], [place], [address], 08/15/2024 06:09:08 XR, knee, 3 view 2023 024 [facility], [address], [place], [address], 08/08/2024 04:06:13 XR, kidney + ureter + bladder 2023 024 [facility], [address], [place], [address], 08/15/2024 06:09:08 Medication Orders albuterol sulfate HFA 90 mcg/actua tion aerosol inhaler 2022 023 [id number], [address] [facility], [place], [address], 10/21/2022 10:55:56 EpiPen 2-Abran 0.3 mg/0.3 mL injection , auto-inje ctor 2022 023 [facility] [address], [address] [place], [address], 10/21/2022 10:55:56 felodipin e ER 2.5 mg tablet,ex tended release 24 hr 2022 023 [facility] [address] [facility], [address] [place], [address], 04/10/2023 10:15:53 Voltaren Arthritis Pain 1 % topical gel 2022 023 [facility] [address] [facility], [address] [place], [address], 04/10/2023 10:15:52 felodipin e ER 2.5 mg tablet,ex tended release 24 hr 2022 023 [facility] [address] [facility], [facility] [place], [address], 08/14/2023 10:24:43 duloxetin e 30 mg capsule,d elayed release 2022 023 m[facility]semajuda [facility] [address] [facility], [address] [facility], [place], [address], 11/20/2023 11:49:52 fluticaso ne propionat e 50 mcg/actua tion nasal spray,naomi pension 2022 023 [facility] [address] [facility], [address], [place], [address], 08/14/2023 10:24:46 esomepraz ole magnesium 20 mg capsule,d elayed release 2022 023 [facility] [address] [facility], [address] [place] [address], [place], [address], 08/14/2023 10:24:44 duloxetin e 60 mg capsule,d elayed release 2023 024 [facility] [id number] [facility], [address] [place] [address], [place], [address], 11/20/2023 11:52:01 meclizine 12.5 mg tablet 2023 024 [facility] [address] [facility], [facility], [place], [address], 08/01/2024 13:13:18 Zepbound 2.5 mg/0.5 mL subcutane ous pen injector 2023 024 [facility] [address] In [place] [address] [facility], [place], [address], 09/10/2024 11:52:23 Voltaren Arthritis Pain 1 % topical gel 2023 024 [facility] [id number] [facility], [address] [place] [address], [place], [address], 08/01/2024 13:12:47 Patient TargetsNo targets recorded. Patient Instructions Encounter Date Encounter Id Patient Instructions Last Modified By Organization Details Last Modified Time 10/21/2022 [id number] mammogram: about this test mshenouda Not available 10/21/2022 10:55:52 arthritis: care instructions mshenouda Not available 10/21/2022 10:55:52 osteoarthritis: care instructions mshenouda Not available 10/21/2022 10:55:52 kidney stone: ca re instructions mshenouda Not available 10/21/2022 10:55:52 learning about d iet for kidney stone prevention mshenouda Not available 10/21/2022 10:55:51 managing your allergies: care instructions mshenouda Not available 10/21/2022 10:55:52 seasonal allergi es: care instructions mshenouda Not available 10/21/2022 10:55:51 gastroesophageal reflux disease (GERD): care instructions mshenouda Not available 10/21/2022 10:55:52 high cholesterol : care instructions mshenouda Not available 10/21/2022 10:55:51 body mass index: care instructions mshenouda Not available 10/21/2022 10:55:52 learning about healthy weight mshenouda Not available 10/21/2022 10:55:52 controlling your asthma: care instructions mshenouda Not available 10/21/2022 10:55:53 learning about asthma mshenouda Not available 10/21/2022 10:55:51 spirometry testing* [facility] Not availa ble 10/21/2022 12:52:38 hypothyroidism: care instructions mshenouda Not available 10/21/2022 10:55:51 living will mshenouda Not available 10/12 10:51:25 04/10/2023 [id number] mammogram: about this test mshenouda Not available 04/10/2023 10:15:30 kidney stone: ca re instructions mshenouda Not available 04/10/2023 10:15:29 learning about d iet for kidney stone prevention mshenouda Not available 04/10/2023 10:15:29 hand arthritis: exercises mshenouda Not available 04/10/2023 10:15:28 gastroesophageal reflux disease (GERD): care instructions mshenouda Not available 04/10/2023 10:15:29 high cholesterol : care instructions mshenouda Not available 04/10/2023 10:15:30 controlling your asthma: care instructions mshenouda Not available 04/10/2023 10:15:29 learning about asthma mshenouda Not available 04/10/2023 10:15:30 spirometry testing* [facility]Y Not availa ble 04/10/2023 14:53:56 body mass index: care instructions mshenouda Not available 04/10/2023 10:15:30 learning about healthy weight mshenouda Not available 04/10/2023 10:15:30 hypothyroidism: care instructions mshenouda Not available 04/10/2023 10:15:29 08/14/2023 [id number] mammogram: about this test mshenouda Not available 08/14/2023 10:24:[address] Biopsy: About This Test mshenouda Not available 08/14/2023 10:24:29 high cholesterol : care instructions mshenouda Not available 08/14/2023 10:24:28 body mass index: care instructions mshenouda Not available 08/14/2023 10:24:29 learning about healthy weight mshenouda Not available 08/14/2023 10:24:28 controlling your asthma: care instructions mshenouda Not available 08/14/2023 10:24:28 learning about asthma mshenouda Not available 08/14/2023 10:24:28 hypothyroidism: care instructions mshenouda Not available 08/14/2023 10:24:29 11/20/2023 [id number] arthritis: care instructions mshenouda Not available 11/20/2023 11:51:55 osteoarthritis: care instructions mshenouda Not available 11/20/2023 11:51:54 mammogram: about this test mshenouda Not available 11/20/2023 11:51:54 managing your allergies: care instructions mshenouda Not available 11/20/2023 11:51:55 seasonal allergi es: care instructions mshenouda Not available 11/20/2023 11:51:[address] Biopsy: About This Test mshenouda Not available 11/20/2023 11:51:55 body mass index: care instructions mshenouda Not available 11/20/2023 11:51:56 learning about healthy weight mshenouda Not available 11/20/2023 11:51:54 kidney stone: ca re instructions mshenouda Not available 11/20/2023 11:51:55 learning about d iet for kidney stone prevention mshenouda Not available 11/20/2023 11:51:53 gastroesophageal reflux disease (GERD): care instructions mshenouda Not available 11/20/2023 11:51:56 high cholesterol : care instructions mshenouda Not available 11/20/2023 11:51:55 controlling your asthma: care instructions mshenouda Not available 11/20/2023 11:51:55 learning about asthma mshenouda Not available 11/20/2023 11:51:54 hypothyroidism: care instructions mshenouda Not available 11/20/2023 11:51:56 living will mshenouda Not available 11/09 11:54:49 08/01/2024 [id number] arthritis: care instructions mshenouda Not available 08/01/2024 13:12:42 mammogram: about this test mshenouda Not available 08/01/2024 13:12:42 benign paroxysma l positional vertigo (bppv): care instructions mshenouda Not available 08/01/2024 13:13:[address] Biopsy: About This Test mshenouda Not available 08/01/2024 13:12:41 body mass index: care instructions mshenouda Not available 08/01/2024 13:12:42 learning about healthy weight mshenouda Not available 08/01/2024 13:12:41 kidney stone: ca re instructions mshenouda Not available 08/01/2024 13:12:41 learning about d iet for kidney stone prevention mshenouda Not available 08/01/2024 13:12:40 gastroesophageal reflux disease (GERD): care instructions mshenouda Not available 08/01/2024 13:12:41 high cholesterol : care instructions mshenouda Not available 08/01/2024 13:12:41 learning about asthma mshenouda Not available 08/01/2024 13:12:40 spirometry testing* ALLY Not availa ble 08/01/2024 13:24:07 hypothyroidism: care instructions mshenouda Not available 08/01/2024 13:12:41 Reason for Referral Roll Reclaimer Referral for Aguila ign hypertension Referring Physician: Kim Mota Internal Medicine, Encounter Date: 10/21/2022 Spinning Machine Tender Referral for Sc reening for malignant neoplasm of cervix Referring Physician: Kim Mota Internal Medicine, Encounter Date: 10/21/2022 Laboratory Chemist Referral for Screening for malignant neoplasm of colon Referring Physician: Kim Mota Internal Medicine, Encounter Date: 10/21/2022 Laboratory Chemist Referral for Screening for malignant neoplasm of colon Referring Physician: Kim Mota Internal Medicine, Encounter Date: 04/10/2023 Laboratory Chemist Referral for Screening for malignant neoplasm of colon Referring Physician: Kim Mota Internal Medicine, Encounter Date: 08/14/2023 Roll Reclaimer Referral for Aguila ign hypertension Referring Physician: Kim Mota Internal Medicine, Encounter Date: 08/14/2023 [employer] Supervisor Referral for Le ft ventricular hypertrophy Referring Physician: Kim Mota Internal Medicine, Encounter Date: 11/20/2023 Laboratory Chemist Referral for Screening for malignant neoplasm of colon Referring Physician: Kim Mota Internal Medicine, Encounter Date: 11/20/2023 Roll Reclaimer Referral for Aguila ign hypertension Referring Physician: Kim Mota Internal Medicine, Encounter Date: 11/20/2023 [employer] Supervisor Referral for El ectrocardiogram abnormal Referring Physician: Kim Mota Internal Medicine, Encounter Date: 08/01/2024 Spinning Machine Tender Referral for Sc reening for malignant neoplasm of cervix Referring Physician: Kim Mota Internal Medicine, Encounter Date: 08/01/2024 Laboratory Chemist Referral for Screening for malignant neoplasm of colon Referring Physician: Kim Mota Internal Medicine, Encounter Date: 08/01/2024 Roll Reclaimer Referral for Aguila ign hypertension Referring Physician: Kim Mota, Internal Medicine, Encounter Date: 08/01/2024 Results Created Date Observation Date Name Description Value Unit Range Abnormal Flag Note LastModifiedBy Organization Detail LastModifiedTime 10/21/1910/21/2022 rafiq metry testi ng* Spirometry Not Available [facility], [facility] [address], [place], [address], 10/21/2022 10:49:31 04/10/20 23 04/10/2023 rafiq metry testi ng* Spirometry Not Available [facility], [facility] [address], [place], [address], 04/10/2023 10:14:52 11/20/19 24 11/20/2023 CBC WITH AUTO- DIFFE RENTI AL WBC 6.9 10*3/ uL 3.4-10 .8 Not Available [facility] [address], [place], [address], 11/27/2023 09:13:50 11/20/19 24 11/20/2023 CBC WITH AUTO- DIFFE RENTI AL RBC 4.73 10*6/ uL 3.80-5 .30 Not Available [facility] [address], [place], [address], 11/27/2023 09:13:50 11/20/19 24 11/20/2023 CBC WITH AUTO- DIFFE RENTI AL HGB 14.5 g/dL 11.1-1 5.9 Not Available [facility] [address], [place], [address], 11/27/2023 09:13:50 11/20/19 24 11/20/2023 CBC WITH AUTO- DIFFE RENTI AL HCT 43.2 % 34.0-4 6.6 Not Available [facility] [address], [place], [address], 11/27/2023 09:13:50 11/20/19 24 11/20/2023 CBC WITH AUTO- DIFFE RENTI AL MCV 91 fL 79-97 Not Available [facility] [address], [place], [address], 11/27/2023 09:13:50 11/20/19 24 11/20/2023 CBC WITH AUTO- DIFFE RENTI AL MCH 30.7 pg 26.6-3 3.0 Not Available [facility] [address] [facility] [address] [facility] [address] [address], [place], [address], 11/27/2023 09:13:50 11/20/19 24 11/20/2023 CBC WITH AUTO- DIFFE RENTI AL MCHC 33.6 g/dL 31.5-3 5.7 Not Available [facility] [address], [place], [address], 11/27/2023 09:13:50 11/20/19 24 11/20/2023 CBC WITH AUTO- DIFFE RENTI AL RDW 12.3 % 11.5-1 4.5 Not Available [facility] [address] [facility] [address], [place], [address], 11/27/2023 09:13:50 11/20/19 24 11/20/2023 CBC WITH AUTO- DIFFE RENTI AL platelets 184 10*3/ uL 150-40 0 Not Available [facility] [address] [facility] [address], [place], [address], 11/27/2023 09:13:50 11/20/19 24 11/20/2023 CBC WITH AUTO- DIFFE RENTI AL MPV 13 fL 9-13 Not Available [facility] [address], [place], [address], 11/27/2023 09:13:50 11/20/19 24 11/20/2023 CBC WITH AUTO- DIFFE RENTI AL neutrophils 62.6 % 40.0-7 4.0 Not Available [facility] [address] [facility] [address], [place], [address], 11/27/2023 09:13:50 11/20/19 24 11/20/2023 CBC WITH AUTO- DIFFE RENTI AL absolute neutrophils 4.29 10*3/ uL 1.40-7 .00 Not Available [facility] [address] [facility] [address], [place], [address], 11/27/2023 09:13:50 11/20/19 24 11/20/2023 CBC WITH AUTO- DIFFE RENTI AL lymphocytes 30.7 % 14.0-4 6.0 Not Available [facility] [address] [facility] [address], [place], [address], 11/27/2023 09:13:50 11/20/19 24 11/20/2023 CBC WITH AUTO- DIFFE RENTI AL absolute lymphocytes 2.10 10*3/ uL 0.70-3 .10 Not Available [facility] [address] [facility] [address], [place], [address], 11/27/2023 09:13:50 11/20/19 24 11/20/2023 CBC WITH AUTO- DIFFE RENTI AL monocytes 6.3 % 4.0-12 .0 Not Available [facility] [address] [facility] [address], [place], [address], 11/27/2023 09:13:50 11/20/19 24 11/20/2023 CBC WITH AUTO- DIFFE RENTI AL absolute monocytes 0.43 10*3/ uL 0.10-0 .90 Not Available [facility] [address] [facility] [address], [place], [address], 11/27/2023 09:13:50 11/20/19 24 11/20/2023 CBC WITH AUTO- DIFFE RENTI AL eosinophils 0.0 % 0.0-5. 0 Not Available [facility] [address], [place], [address], 11/27/2023 09:13:50 11/20/19 24 11/20/2023 CBC WITH AUTO- DIFFE RENTI AL absolute eosinophils 0.00 10*3/ uL 0.00-0 .40 Not Available [facility] [address] [facility] [address], [place], [address], 11/27/2023 09:13:50 11/20/19 24 11/20/2023 CBC WITH AUTO- DIFFE RENTI AL basophils 0.1 % 0.0-3. 0 Not Available [facility] [address] [facility] [address], [place], [address], 11/27/2023 09:13:50 11/20/19 24 11/20/2023 CBC WITH AUTO- DIFFE RENTI AL absolute basophils 0.01 10*3/ uL 0.00-0 .20 Not Available [facility] [address] [facility] [address], [place], [address], 11/27/2023 09:13:50 11/20/19 24 11/20/2023 CBC WITH AUTO- DIFFE RENTI AL imm. gran. 0.3 % 0.0-2. 0 Not Available [facility] [address] [facility] [address], [place], [address], 11/27/2023 09:13:50 11/20/19 24 11/20/2023 CBC WITH AUTO- DIFFE RENTI AL abs. imm. gran. 0.02 10*3/ uL 0.00-0 .10 Not Available [facility] [address] [facility] [address], [place], [address], 11/27/2023 09:13:50 11/20/19 24 11/20/2023 COMPR EHENS [place] METAB OLIC PANEL sodium 143 mmol/ L 134-14 4 Not Available [facility] [address] [facility] [address], [place], [address], 11/27/2023 09:13:51 11/20/19 24 11/20/2023 COMPR [place] MET[place]IC PANEL potassium 4.5 mmol/ L 3.5-5. 2 Not Available [facility] [address] [facility] [address], [place], [address], 11/27/2023 09:13:51 11/20/19 24 11/20/2023 COMPR [place] MET[place] OLIC PANEL chloride 105 mmol/ L 97-108 Not Available [facility] [address] [facility] [address], [place], [address], 11/27/2023 09:13:51 11/20/19 24 11/20/2023 COMPR [place] METAB OLIC PANEL carbon dioxide (co2) 30.0 mmol/ L 18.0-2 9.0 high Not Available [facility] [address] [facility] [address], [place], [address], 11/27/2023 09:13:51 11/20/19 24 11/20/2023 COMPR [place] METAB OLIC PANEL glucose 96 mg/dL 65-99 Gogo l Fasti ng: < 100 mg/dL Impai red Fasti n - 125 mg/dL Diagn ostic of Diabe sheryl: => 126 mg/dL Ameri can [facility] n, 2007 Not Available [facility] [address] [facility] [address], [place], [address], 11/27/2023 09:13:51 11/20/19 24 11/20/2023 COMPR [place] MET[place] OLIC PANEL urea nitrogen (BUN) 7 mg/dL 8-23 low Not Available [facility] [address] [facility] [address], [place], [address], 11/27/2023 09:13:51 11/20/19 24 11/20/2023 COMPR [place] MET[place]IC PANEL creatinine 0.79 mg/dL 0.57-1 .00 Not Available [facility] [address], [place], [address], 11/27/2023 09:13:51 11/20/19 24 11/20/2023 COMPR [place] MET[place]IC PANEL eGFR for nonafrican AM 73 mL/mi nute/ 1.73_ m2 >59 Not Available [facility] [address], [place], [address], 11/27/2023 09:13:51 11/20/19 24 11/20/2023 COMPR [place] MET[place]IC PANEL eGFR for AM 89 mL/mi nute/ 1.73_ m2 >59 MDRD Study Equat ion: The calcu lated GFR is NOT appli cable for pedia tric (< 18 years old) and > 70 year old patie nts and patie nts that are NOT of [place] . Not Available [facility] [address], [place], [address], 11/27/2023 09:13:51 11/20/19 24 11/20/2023 COMPR [place] MET[place]IC PANEL calcium 9.7 mg/dL 8.7-10 .3 Not Available [facility] [address] [facility] [address], [place], [address], 11/27/2023 09:13:51 11/20/19 24 11/20/2023 COMPR [place] MET[place]IC PANEL protein, total 6.5 gm/dL 6.4-8. 3 Not Available [facility] [address], [place], [address], 11/27/2023 09:13:51 11/20/19 24 11/20/2023 COMPR [place] MET[place] OLIC PANEL albumin 4.4 gm/dL 3.5-5. 2 Not Available [facility] [address] [facility] [address], [place], [address], 11/27/2023 09:13:51 11/20/19 24 11/20/2023 COMPR [place] MET[place]IC PANEL bilirubin, total 0.80 mg/dL 0.00-1 .20 Not Available [facility] [address] [facility] [address], [place], [address], 11/27/2023 09:13:51 11/20/19 24 11/20/2023 COMPR [place] MET[place]IC PANEL alkaline phosphatase (ALP) 70 U/L 39-117 Not Available [facility] [address] [facility] [address], [place], [address], 11/27/2023 09:13:51 11/20/19 24 11/20/2023 COMPR [place]IC PANEL aspartate aminotransfe rase (AST) 21 U/L 0-32 Not Available [facility] [address] [facility] [address], [place], [address], 11/27/2023 09:13:51 11/20/19 24 11/20/2023 COMPR [place] MET[place]IC PANEL alanine aminotransfe rase (ALT) 22 U/L 0-33 Not Available [facility] [address] [facility] [address], [place], [address], 11/27/2023 09:13:51 11/20/19 24 11/20/2023 COMPR [place]IC PANEL A/G ratio (calculated) 2.1 ratio 1.0-2. 7 Not Available [facility] [address] [facility] [address], [place], [address], 11/27/2023 09:13:51 11/20/19 24 11/20/2023 COMPR [place] MET[place]IC PANEL globulin (calculated) 2.1 gm/dL 1.5-3. 8 Not Available [place] [id number] [facility] [address], [place], [address], 11/27/2023 09:13:51 11/20/19 24 11/20/2023 COMPR [place] MET[place]IC PANEL BUN/creatini ne ratio (calculated) 8.9 ratio 8.0-20 .0 Not Available [facility] [address] [facility] [address], [place], [address], 11/27/2023 09:13:51 11/20/19 24 11/20/2023 COMPR [place]IC PANEL serum hemolysis index NORMAL index normal Not Available [facility] [address] [facility] [address], [place], [address], 11/27/2023 09:13:51 11/20/19 24 11/20/2023 FREE T4 thyroxine (T4), free 1.55 NG/dL 0.82-1 .77 Not Available [facility] [address] [facility] [address], [place], [address], 11/27/2023 09:13:52 11/20/19 24 11/20/2023 LIPID PANEL W/ CALC. LDL cholesterol, total 182 mg/dL 100-19 9 Not Available [facility] [address] [facility] [address], [place], [address], 11/27/2023 09:13:53 11/20/19 24 11/20/2023 LIPID PANEL W/ CALC. LDL HDL cholesterol 40 mg/dL =>40 Not Available [facility] [address] [facility] [address], [place], [address], 11/27/2023 09:13:53 11/20/19 24 11/20/2023 LIPID PANEL W/ CALC. LDL LDL cholesterol (calculated) 114 mg/dL 0-99 high Not Available [facility] [address] [facility] [address], [place], [address], 11/27/2023 09:13:53 11/20/19 24 11/20/2023 LIPID PANEL W/ CALC. LDL triglyceride s 139 mg/dL 50-149 Not Available [facility] [address] [facility] [address], [place], [address], 11/27/2023 09:13:53 11/20/19 24 11/20/2023 LIPID PANEL W/ CALC. LDL chol/HDL ratio (calculated) 4.55 ratio 0.00-5 .00 Not Available [facility] [address] [facility] [address], [place], [address], 11/27/2023 09:13:53 11/20/19 24 11/20/2023 LIPID PANEL W/ CALC. LDL VLDL cholesterol (calculated) 28 mg/dL 5-40 Not Available [facility] [address] [facility] [address], [place], [address], 11/27/2023 09:13:53 11/20/19 24 11/20/2023 THYRO ID-ST IM. HORMO NE (TSH) , HIGH- SENSI TIVE thyroid-stim . hormone (TSH), hs 0.62 uIU/m L 0.27-4 .20 Not Available [facility] [address] [facility] [address], [place], [address], 11/27/2023 09:13:53 11/20/19 24 11/27/2023 IMMUN OGLOB ULIN E TOTAL immunoglobul in E, total 8 IU/mL 6-495 normal Not Available [facility] [address] [facility] [address], [place], [address], 11/27/2023 09:13:54 08/01/20 24 08/01/2024 rafiq metry testi ng* Spirometry Not Available [facility], [facility] [address] [facility] [address], [place], [address], 08/01/2024 13:06:42 10/21/19 23 10/21/2022 elect jesu pearcegr am No observ ation record ed. mshenouda [facility], [facility] [address] [facility] [address], [place], [address], 04/10/2023 10:05:14 10/21/19 23 11/23/2022 US, echo ardio gram No observ ation record ed. [facility], [facility] [address], [place], [address], 04/10/2023 10:05:14 10/25/19 23 10/21/2022 elect jesu pearcegr am No observ ation record ed. [facility] Not Available 2022 10:05:14 04/10/20 23 04/10/2023 US, echo ardio gram No observ ation record ed. [facility], [facility] [address], [place], [address], 08/14/2023 10:12:51 04/10/20 rafiq metry testi ng* No observ ation record ed. [facility], [facility] [address], [place], [address], 08/14/2023 10:12:51 04/10/20 23 04/10/2023 MAMMO , scree haritha, digit al, bilat eral No observ ation record ed. [facility] [address], [place], [address], 08/14/2023 10:12:52 04/10/20 23 04/10/2023 XR, kidne y + urete r + bladd er No observ ation record ed. [facility] [address], [place], [address], 08/14/2023 10:12:52 05/05/20 23 05/05/2023 MAMMO , diagn ostic , digit al, unila teral No observ ation record ed. [facility] [address], [place], [address], 08/14/2023 10:16:55 11/20/19 24 11/20/2023 US, echoc ardio gram No observ ation record ed. [facility] [address], [place], [address], 08/01/2024 13:02:43 11/20/19 24 11/22/2023 elect rocar diogr am No observ ation record ed. [facility] [address], [place], [address], 08/01/2024 13:02:43 11/22/19 24 11/20/2023 elect rocar diogr am No observ ation record ed. [facility] [address], [place], [address], 08/01/2024 13:02:43 01/17/20 24 01/03/2024 US, echoc ardio gram No observ ation record ed. [facility] [address], [place], [address], 08/01/2024 13:02:43 01/24/20 24 01/03/2024 US, echoc ardio gram No observ ation record ed. [facility] [address], [place], [address], 08/01/2024 13:02:42 Result Notes None recorded. Problems Name Problem SNOMED Code Status Onset Date Resolution Date Notes Provider Name and Address Organization Details Recorded Time Asthma 750271615 Teresa bailey [facility] 6 09:16:52 Benign hypertensio n 08373672 Teresa bailey [facility] 6 09:16:58 Gastroesoph ageal reflux disease 948190097 Teresa bailey [facility] 6 09:17:04 Hyperlipide cherie 75856382 [facility] 09:17[facility]11 Hypothyroid ism 00854710 [facility] 6 09:17:18 Kidney stone 82889052 [facility] 6 09:17:25 Overweight 254366098 [facility] 6 09:17:31 Left atrial enlargement 2217020308359 9 Active 2016 Kim Mota MD [address], [place], [address], [facility] 7 09:42:54 Left ventricular hypertrophy 41299368 Active 2016 Kim Mota MD [address], [place], [address], [place] [facility] 7 09:42:56 Osteoarthri tis 797644864 Active [address] [facility] 8 12:44:06 Body mass index 40+ - severely obese 546880401 Active 2018 Kim Mota MD [address], [place], [address], [facility] 9 10:57:55 Allergic rhinitis caused by pollen 62923449 Active 2020 Kim Mota MD [address], [place], [address], [place] [facility] 1 12:52:33 COVID-19 509327426 Active 2020 Kim Mota MD [address], [place], [address], [place] [facility] 09:57:18 Mammography abnormal 915456943 Active 2022 Kim Mota MD [address], [place], [address], [place] [facility] 3 22:11:44 Mixed anxiety and depressive disorder 847712863 Active 2022 Kim Mota MD [address], [place], [address], [place] [facility] 3 10:15:40 Problem Notes None recorded. Procedures Surgical History Date Name Laterality Status Provider Name and Address Organization Details Recorded Time 09/17/19 Date of Last Mammogram completed [facility] 01/16/2018 16:19:08 Tonsillectomy completed [facility] 06/27/2016 09:15:28 Cholecystectomy completed [facility] 06/27/2016 09:15:34 Tubal Ligation completed [facility] 06/27/2016 09:15:40 Imaging Results Imaging Date Name Status LastModified by Organization Details LastModified Time 10/21/2022 electrocardiogram completed [facility], [facility] [address], [place], [address], 04/10/2023 10:05:14 11/23/2022 US, echocardiogram completed [facility], [facility] [address], [place], [address], 04/10/2023 10:05:14 10/21/2022 electrocardiogram [facility] not available 04/10/2023 10:05:14 04/10/2023 US, echocardiogram completed [facility], [facility] [address], [place], [address], 08/14/2023 10:12:51 04/10/2023 spirometry testing* completed [facility], [facility] [address], [place], [address], 08/14/2023 10:12:51 04/10/2023 MAMMO, screening, digital, bilateral completed [facility] [address], [place], [address], 08/14/2023 10:12:52 04/10/2023 XR, kidney + ureter + bladder completed [facility] [address], [place], [address], 08/14/2023 10:12:52 05/05/2023 MAMMO, diagnostic, digital, unilateral completed [facility] [address], [place], [address], 08/14/2023 10:16:55 11/20/2023 US, echocardiogram completed [facility], [facility] [address], [place], [address], 08/01/2024 13:02:43 11/22/2023 [facility] [employer] [facility], [facility] [address], [place], [address], 08/01/2024 13:02:43 11/20/2023 electrocardiogram [facility], [facility] [address], [place], [address], 08/01/2024 13:02:43 01/03/2024 US, echocardiogram completed [facility], [facility] [address], [place], [address], 08/01/2024 13:02:43 01/03/2024 US, echocardiogram completed [facility], [facility] [address], [place], [address], 08/01/2024 13:02:42 Procedure Notes None recorded. Medical Equipment None Reported. Allergies Allergen ID Allergen Name Allergen Category Reaction Reaction Severity Criticality Documentation Date Start Date Code Code System Note Provider Name and Address Organization Details Recorded Time 4074 codeine medicatio n Not available Not available Not available 06/27/2016 2670 RxNorm Brisa bailey, [facility] 6 09:14:49 4075 Crestor medicatio n Not available Not available Not available 06/27/2016 84844 4 RxNorm Brisa bailey, [facility] 6 09:14:56 4076 Pravachol medicatio n Not available Not available Not available 06/27/201616000 3 RxNorm Brisa bailey, [facility] 6 09:15:01 4077 Zocor medicatio n Not available Not available Not available 06/27/2016 53188 3 RxNorm Brisa bailey, [facility] 6 09:15:08 8815 amlodipin e medicatio n Not available Not available Not available 11/06/2019 64049 RxNorm const ipati on and joint pain - ED MAHMOOD APN [address], [place], [address], [facility] 0 09:56:03 9292 Cipro medicatio n other Not available Not available 06/15/202089695 3 RxNorm skin pumps Kim Mota MD [address], [place], [address], [facility] 0 15:39:30 Medications Name Sig Start Date Stop Date Status Note LastModified by Organization Details LastModified Time Ecotrin Low Strength 81 mg tablet,ente charla coated TAKE 1 TABLET DAILY 2016 active Not Available Not Available Not Avai lable carvedilol 6.25 mg tablet TAKE 1 TABLET BY MOUTH TWICE A DAY active Not Available Not Available No t Available doxycycline hyclate 100 mg capsule Take 1 capsule twice a day by oral route. 10/14 completed Not Available Not Available Not Available clindamycin HCl 300 mg capsule Take 1 capsule every 8 hours by oral route. 07/19 completed Not Available Not Available Not Available felodipine ER 2.5 mg tablet,exte nded release 24 hr TAKE 1 TABLET EVERY DAY BY ORAL ROUTE IN THE MORNING. active Not Available Not Available No t Available azithromyci n 250 mg tablet TAKE 2 TABLETS BY MOUTH TODAY, THEN TAKE 1 TABLET DAILY FOR 4 DAYS DIRECTED active Not Available Not Available No t Available benzonatate 200 mg capsule Take 1 capsule 3 times a day by oral route. 10/14 completed Not Available Not Available Not Available hydrocodone 5 mg-acetamin ophen 325 mg tablet 06/23 completed Not Available Not Available Not Available prednisone 20 mg tablet TAKE 1 TABLET BY MOUTH EVERY DAY active Not Available Not Available No t Available Synthroid 100 mcg tablet Take 1 tablet every day by oral route in the morning. 06/27 completed Not Available Not Available Not Available Pyridium 200 mg tablet Take 1 tablet 3 times a day by oral route for 2 days. 03/31 completed Not Available Not Available Not Available permethrin 5 % topical cream 06/27 completed Not Available Not Available Not Available meclizine 12.5 mg tablet Take 1 tablet 3 times a day by oral route. active Not Available Not Available No t Available amlodipine 2.5 mg tablet active Not Available Not Available Not Available amlodipine 5 mg tablet Take 1 tablet every day by oral route. 04/30 completed Not Available Not Available Not Available ciprofloxac in 500 mg tablet TAKE 1 TABLET BY MOUTH EVERY 12 HOURS 06/23 completed Not Available Not Available Not Available tramadol 50 mg tablet TAKE 1 TABLET BY MOUTH THREE TIMES A DAY NEEDED active Not Available Not Available No t Available triamcinolo ne acetonide 0.1 % topical cream APPLY THIN COAT TO AFFECTED AREA TWICE A DAY 08/14 completed Not Available Not Available Not Available tamsulosin 0.4 mg capsule TAKE 1 CAPSULE BY MOUTH EVERY DAY 10/21 completed Not Available Not Available Not Available benzonatate 100 mg capsule Take 1 capsule 3 times a day by oral route. 02/09 completed Not Available Not Available Not Available esomeprazol e magnesium 40 mg capsule,del ayed release TAKE ONE CAPSULE BY MOUTH ONCE DAILY NEEDED 08/14 completed Not Available Not Available Not Available levothyroxi ne 125 mcg tablet TAKE 1 TABLET BY MOUTH EVERY DAY IN THE MORNING 01/06 completed Not Available Not Available Not Available Synthroid 88 mcg tablet 06/27 completed Not Available Not Available Not Available telmisartan 80 mg tablet Take 1 tablet every day by oral route. 11/23 completed Not Available Not Available Not Available levothyroxi ne 150 mcg tablet TAKE 1 TABLET BY MOUTH EVERY DAY IN THE MORNING 2024 active Not Available Not Available Not Avai lable telmisartan 20 mg tablet TAKE ONE TABLET BY MOUTH ONCE DAILY 04/30 completed Not Available Not Available Not Available Synthroid 112 mcg tablet TAKE ONE TABLET BY MOUTH EVERY MORNING 01/17 completed Not Available Not Available Not Available epinephrine 0.3 mg/0.3 mL injection, auto-inject or DIRECTED active Not Available Not Available No t Available Nasonex 50 mcg/actuati on [place] 06/27 completed Not Available Not Available Not Available ibuprofen 600 mg tablet 06/23 completed Not Available Not Available Not Available Pepcid 20 mg tablet Take 1 tablet twice a day by oral route. 11/19 completed Not Available Not Available Not Available methylpredn isolone 4 mg tablets in a dose pack TAKE 6 TABLETS ON DAY 1 DIRECTED ON PACKAGE AND DECREASE BY 1 TAB EACH DAY FOR A TOTAL OF 6 DAYS 08/14 completed Not Available Not Available Not Available albuterol sulfate HFA 90 mcg/actuati on aerosol inhaler INHALE 2 PUFFS BY MOUTH EVERY 8 HOURS NEEDED active Not Available Not Available No t Available fluticasone propionate 50 mcg/actuati on nasal spray,suspe nsion SPRAY 1 SPRAY BY INTRANASA L ROUTE EVERY DAY active Not Available Not Available No t Available loratadine 10 mg tablet TAKE ONE TABLET BY MOUTH ONCE DAILY AT BEDTIME 11/19 completed Not Available Not Available Not Available amoxicillin 875 mg-potassiu m clavulanate 125 mg tablet Take 1 tablet every 12 hours by oral route. 08/19 completed Not Available Not Available Not Available esomeprazol e magnesium 20 mg capsule,del ayed release TAKE 1 CAPSULE BY MOUTH EVERY DAY IN THE MORNING active Not Available Not Available No t Available olmesartan 40 mg tablet TAKE 1 TABLET BY MOUTH EVERY DAY active Not Available Not Available No t Available cholestyram ine (with sugar) 4 gram powder for susp in a packet TAKE 1 PACKET DAILY BY MOUTH NEEDED active Not Available Not Available No t Available rosuvastati n 5 mg tablet TAKE 1 TABLET BY MOUTH EVERY DAY active Not Available Not Available No t Available rosuvastati n 10 mg tablet Take 1 tablet every day by oral route. 09/27 completed Not Available Not Available Not Available nitrofurant oin monohydrate /macrocryst als 100 mg capsule Take 1 capsule every 12 hours by oral route for 7 days. 06/23 completed Not Available Not Available Not Available duloxetine 30 mg capsule,del ayed release TAKE 1 CAPSULE BY MOUTH EVERY DAY active Not Available Not Available No t Available duloxetine 60 mg capsule,del ayed release TAKE 1 CAPSULE BY MOUTH EVERY DAY active Not Available Not Available No t Available Boostrix Tdap 2.5 Lf unit-8 mcg-5 Lf/0.5 mL intramuscul ar syringe 03/27 completed Not Available Not Available Not Available Bystolic 5 mg tablet 04/26 completed Not Available Not Available Not Available Suprep Bowel Prep Kit 17.5 gram-3.13 gram-1.6 gram oral solution 09/27 completed Not Available Not Available Not Available Mucus DM 30 mg-600 mg tablet,exte nded release TAKE 1 TABLET BY MOUTH EVERY 12 HOURS active Not Available Not Available No t Available Fluvirin 0084-2590 45 mcg (15 mcg x 3)/0.5 mL intramuscul ar suspension 01/17 completed Not Available Not Available Not Available Amabelz 0.5 mg-0.1 mg tablet 04/14 completed Not Available Not Available Not Available Fluzone Quad (PF) 60 mcg (15 mcg x 4)/0.5 mL IM syringe PHARMACIS T ADMINISTE RED IMMUNIZAT ION ADMINISTE RED AT TIME OF DISPENSIN G 04/14 completed Not Available Not Available Not Available ID NOW COVID-19 Test Kit DIRECTED 06/02 completed Not Available Not Available Not Available Voltaren Arthritis Pain 1 % topical gel APPLY 2 GRAMS TO THE AFFECTED AREA(S) BY TOPICAL ROUTE 4 TIMES PER DAY 2023 active Not Available Not Available Not Avai lable Fluzone Quad (PF) 60 mcg (15 mcg x 4)/0.5 mL IM syringe PHARMACIS T ADMINISTE RED IMMUNIZAT ION ADMINISTE RED AT TIME OF DISPENSIN G 10/09 completed Not Available Not Available Not Available Zepbound 5 mg/0.5 mL subcutaneou s pen injector INJECT 5 MG SUBCUTANE OUSLY WEEKLY active Not Available Not Available No t Available Zepbound 2.5 mg/0.5 mL subcutaneou s pen injector 09/10 completed Not Available Not Available Not Available Zepbound 7.5 mg/0.5 mL subcutaneou s pen injector Inject 7.5 mg every week by subcutane ous route. active Not Available Not Available No t Available Vitals Date Recorded Body height Body mass index (BMI) Body weight Body temperature Respiratory rate Heart rate Provider Name and Address Organization Details Last Updated DateTime 3 162.56 cm 45.5 kg/m2 565450. 98 g 97.9 [degF] 18 /min 67 /min Ninfa Duffy [facility] 3 10:10:45 Date Recorded Systolic blood pressure Diastolic blood pressure Provider Name and Address Organization Details Last Updated DateTime 10/21/2022 131 mm[Hg] 88 mm[Hg] Kim Mota MD [address], [place], [address], [facility] 10/21/2022 10:51:40 Date Recorded Body height Heart rate Body mass index (BMI) Body weight Body temperature Respiratory rate Systolic blood pressure Diastolic blood pressure Provider Name and Address Organization Details Last Updated DateTime 3 162.56 cm 62 /min 45.7 kg/m2 556788. 57 g 97.2 [degF] 18 /min 187 mm[Hg] 102 mm[Hg] Ninfa Duffy [facility] 3 09:38:02 Date Recorded Body height Body mass index (BMI) Body weight Body temperature Respiratory rate Heart rate Provider Name and Address Organization Details Last Updated DateTime 3 162.56 cm 45.3 kg/m2 946480. 39 g 98.1 [degF] 18 /min 65 /min Ninfa Duffy [facility] 3 09:52:11 Date Recorded Systolic blood pressure Diastolic blood pressure Provider Name and Address Organization Details Last Updated DateTime 08/14/2023 147 mm[Hg] 85 mm[Hg] Kim Mota MD [address], [place], [address] 08/14/2023 10:22:52 Date Recorded Body height Body temperature Body mass index (BMI) Body weight Heart rate Respiratory rate Provider Name and Address Organization Details Last Updated DateTime 4 162.56 cm 97.7 [degF] 45.1 kg/m2 285935. 79 g 68 /min 18 /min Ninfa Clive [facility] 11:20:08 Date Recorded Systolic blood pressure Diastolic blood pressure Provider Name and Address Organization Details Last Updated DateTime 11/20/2023 134 mm[Hg] 79 mm[Hg] Kim Mota MD [address], [place], [address] 11/20/2023 11:43:52 Date Recorded Body height Body mass index (BMI) Body weight Body temperature Heart rate Respiratory rate Provider Name and Address Organization Details Last Updated DateTime 4 162.56 cm 48.1 kg/m2 477902. 86 g 97.4 [degF] 70 /min 18 /min Ninfa Clive [facility] 4 12:20:16 Date Recorded Systolic blood pressure Diastolic blood pressure Provider Name and Address Organization Details Last Updated DateTime 08/01/2024 133 mm[Hg] 68 mm[Hg] Kim Mota MD [address], [place], [address] 08/01/2024 13:08:07 Social History Question Answer Notes LastModified by Organizat ion Details LastModified Time Tobacco Smoking Status Never Smoker Brisa bailey [facility] 06/27/2016 09:15:11 Do You Have An Advance Directive? No [email or web address] Information not available 08/14/2023 What Is Your Level Of Alcohol Consumption? None [email or web address] Information not available 06/27/2016 Hard Of Hearing Or Deaf In One Or Both Ears? No [email or web address] Information not available 08/14/2023 Legally Blind In One Or Both Eyes? No [email or web address] Information not available 08/14/2023 Live Alone Or With Others? With Others [email or web address] Information not available 08/14/2023 What Was The Date Of Your Most Recent Tobacco Screening? 09/27/2018 [email or web address] Information not available 08/14/2023 Sex: Unknown Functional Status None recorded. Mental Status None recorded. Family History Relationship Description Onset Age of this Age Resolved Age Notes LastModified by Organization Details LastModified Time Father Coronary arterioscler osis 62 [email or web address] Not available 2015 09:15:55 Father Myocardial infarction [email or web address] Not available 06/27 09:16:03 Father Alcoholism [email or web address] Not availa ble 06/27/2016 09:16:13 Mother Essential hypertension [email or web address] Not available 09:16:25 Mother Disorder of thyroid gland [email or web address] Not available 2015 09:16:36 Mother Malignant tumor of cervix [email or web address] Not available 2015 09:16:44 Medical History No medical history recorded. Gynecological History Statement/Question Response Date of Last Mammogram 09/17/2016 Obstetrics History GPAL:G 0 P 0 0 0 0 Immunizations Vaccine Type Date Status Note Provider Nam e and Address Organization Details Recorded Time Influenza, split virus, quadrivalent, PF [address] [facility] 08/14/2023 09:40:24 Influenza, split virus, trivalent, preservative [address] [facility] 07/24/2019 16:29:26 Tdap [address] [facility] 11/07/2019 09:24:35 zoster recombinant [address] [facility] 08/14/2023 09:40:24 Influenza, split virus, quadrivalent, preservative [address] [facility] 08/14/2023 09:40:24 SARS-COV-2 (COVID-19) vaccine, UNSPECIFIED [address] [facility] 08/14/2023 09:40:24 Td(adult) unspecified formulation 9 completed Abbi Schofield null, [facility] 08/14/2023 09:40:24 Influenza, split virus, quadrivalent, PF 2 completed Abbi Schofield null, [facility] 08/14/2023 09:40:24 zoster recombinant 2 completed Abbi Schofield null, [facility] 08/14/2023 09:40:24 Influenza, split virus, trivalent, preservative 6 completed Not Available [facility] 09/28/2019 02:27:20 Past Encounters Encounter ID Performer Location Encounter Start Date Encounter Closed Date Diagnosis/Indication Diagnosis SNOMED-CT Code Diagnosis ICD10 Code Diagnosis Note [id number] Kim Mota MD [facility], [facility] [address] [place] [address] 06/27/2016 17:13:37 06/27/2016 18:37:05 Benign hypertension 89939195 I10 add norvasc ,BP 2 weeks Asthma 419453177 J45.90 9 Overweight 765424451 E66 .3 Hypothyroidism 49603148 E03.9 Hyperlipidemia 23529954 E78.5 Left ventr icular hypertrophy 92120637 I51.7 on ECHO 01/19/11 //will recheck Active or passive immunization 349819482 Z23 Screening for malignant neoplasm of colon 000575721 Z12.11 Viral screening 19408654 4 Z11.59 Screening for malignant neoplasm of cervix 004480475 Z12.4 Screening mammography 24 678525 Z12.31 Osteoarthritis 451873688 M19.90 [id number] Anali Foley, [facility], [facility] [address] [place] [address] 11/03/2016 11:58:16 11/03/2016 12:46:18 Dysuria 66740471 R30.0 [id number] Kim Mota MD [facility], [facility] [address] [place] [address] 03/31/2017 09:09:45 03/31/2017 09:49:51 Adult health examination 416430989 Z00.00 Benign hypertension 1072 5009 I10 Asthma 870042809 J45.90 9 Overweight 532814468 E66 .3 Hypothyroidism 77464180 E03.9 Hyperlipidemia 19544366 E78.5 refuse crestor OR any chol meds Screening for malignant neoplasm of cervix 981409119 Z12.4 per pt had PAP 04/2016 Screening for malignant neoplasm of colon 881538603 Z12.11 Viral screening 62707958 4 Z11.59 Left ventr icular hypertrophy 94371387 I51.7 on ECHO 01/19/11 //will recheck Left atria l enlargement 6714299382 9109 I51.7 on ECHO 2010 , recheck [id number] Kim Mota MD [facility], [facility] [address] [place] [address] 01/16/2018 16:15:41 01/16/2018 17:18:15 Benign hypertension 96058396 I10 Asthma 961685099 J45.90 9 Overweight 693432738 E66 .3 Hypothyroidism 48511699 E03.9 Hyperlipidemia 50512927 E78.5 refuse crestor OR any chol meds Kidney stone 90738374 N2 0.0 Screening mammography 24 535627 Z12.31 Screening for malignant neoplasm of cervix 992935239 Z12.4 per pt had PAP 10/2017 Screening for malignant neoplasm of colon 253818524 Z12.11 last C scope 12/04/17 , good for 5 years per pt Viral screening 40923699 4 Z11.59 Cholesterol screening 27 8308810 Z13.220 [id number] Kim Mota MD [employer], [facility] [address] [place] [address] 09/27/2018 10:22:26 09/27/2018 11:13:40 Adult health examination 439142795 Z00.01 Benign hypertension 1072 5009 I10 Asthma 588749476 J45.90 9 Gastroesop hageal reflux disease 933157885 K21.9 education about senior living use PPI Body mass index 40+ - severely obese 813418244 Z68.42 education Osteoarthritis 510854687 M19.90 fair control with OTC PRN Hypothyroidism 59952227 E03.9 Hyperlipidemia 13627685 E78.5 refuse crestor OR any chol meds Left ventr icular hypertrophy 33752770 I51.7 on ECHO 01/19/11 /will recheck Kidney stone 49969564 N2 0.0 Screening mammography 24 867244 Z12.31 Screening for malignant neoplasm of cervix 311289588 Z12.4 per pt had PAP 10/2017 Screening for malignant neoplasm of colon 332876441 Z12.11 last C scope 12/04/17 , good for 5 years per pt Active or passive immunization 807343438 Z23 Sinusitis 77326994 J32.9 [id number] Kim Mota MD [employer], [facility] [address] [place] [address] 09/09/2019 12:12:02 09/09/2019 12:38:31 Bronchitis 55955994 J40 Benign hypertension 1072 5009 I10 per pt had optometry eval 07/2019inc rease norvasc to 5 QAM , BP 2-3 weeks Asthma 122639853 J45.90 9 Hyperlipidemia 00210237 E78.5 refuse crestor OR any chol meds Hypothyroidism 02622547 E03.9 Kidney stone 05294786 N2 0.0 Left ventr icular hypertrophy 10725974 I51.7 on ECHO 01/19/11 /will recheck Osteoarthritis 633228166 M19.90 fair control with OTC PRN Body mass index 40+ - severely obese 834999499 Z68.42 education Screening mammography 24 636063 Z12.31 Screening for malignant neoplasm of cervix 853219868 Z12.4 per pt had PAP 10/2017 Screening for malignant neoplasm of colon 813469392 Z12.11 last C scope 12/04/17 , good for 5 years per pt Active or passive immunization 301465369 Z23 Viral screening 95667436 4 Z11.59 [id number] ED MAHMOOD APN [employer], [facility] [address] [place] [address] 10/16/2019 10:49:37 10/16/2019 11:28:03 Allergic reaction 888151863 T78.40XA started on doxy 09/09/19 - -- completed rx - although hives have worsened (over 1 month)incr ease in amlodipine from 2.5 - 5 - amlodpine was stopped Monday night (2 days ago)diet has not changedlau ndry detergent changed -benadryl as needed [id number] ED MAHMOOD APN [employer], [facility] [address] [place] [address] 10/23/2019 09:40:49 10/23/2019 10:29:20 Adult health examination 318452764 Z00.00 Benign hypertension 1072 5009 I10 CBC CMP - Asthma 845217451 J45.90 9 no issues Gastroesop hageal reflux disease 351757508 K21.9 Body mass index 40+ - severely obese 520952382 Z68.42 education Osteoarthritis 417977603 M19.90 Hypothyroidism 50987817 E03.9 TSH normal 09/20/19 Hyperlipidemia 64425613 E78.5 LDL -- 101refusin g to take statin Left ventr icular hypertrophy 36907486 I51.7 on ECHO 01/19/11 //will rechecksch eduled in 12/29 Kidney stone 34460250 N2 0.0 no issues Screening mammography 24 955392 Z12.31 Screening for malignant neoplasm of cervix 334740851 Z12.4 per pt had PAP 10/2017 Screening for malignant neoplasm of colon 658584351 Z12.11 last C scope 12/04/17 , good for 5 years per pt Active or passive immunization 215176775 Z23 Allergic reaction 959708 005 T78.40XA started on doxy 09/09/19 - -- completed rx - although hives have worsened (over 1 month)incr ease in amlodipine from 2.5 - 5 - amlodpine was stopped Monday night (2 days ago)diet has not changedlau ndry detergent changed -benadryl as neededmedr ol dose pa helped but rash has not clearedwor se at nighttakes bystolic at night --restart amlodipine and hold bystolic - for now to evalstart zyrtec at HS and pepcid BID -ASA 81 was stopped 3 days ago - no change in rashappt with extended insurance clerk 10/30/19 Sinusitis 56433135 J32.9 [id number] ED MAHMOOD APN [employer], [facility] [address] [place] [address] 11/06/2019 09:27:49 11/06/2019 10:04:03 Allergic reaction 511238819 T78.40XA started on doxy 09/09/19 - -- completed rx - although hives have worsened (over 1 month)incr ease in amlodipine from 2.5 - 5 - amlodpine was stopped Monday night (2 days ago)diet has not changedlau ndry detergent changed -benadryl as neededmedr ol dose pa helped but rash has not clearedwor se at nighttakes bystolic at night --appt with extended insurance clerk 10/30/19 - although did not go bc rash improved and was on antihistam ine - requires to be off x 7 days Benign hypertension 1072 5009 I10 CBC CMP -bystolic continued -amlodipin e causing joint pain and constipati on will change - to telmisarta n Asthma 459320529 J45.90 9 no issues Gastroesop hageal reflux disease 660233929 K21.9 Body mass index 40+ - severely obese 395887246 Z68.42 education Osteoarthritis 087992266 M19.90 Hypothyroidism 30953325 E03.9 TSH normal 09/20/19 Hyperlipidemia 53244376 E78.5 LDL -- 101refusin g to take statin Left ventr icular hypertrophy 38807965 I51.7 on ECHO 01/19/11 //will rechecksch eduled in 12/30/19 Kidney stone 66453322 N2 0.0 no issues Screening mammography 24 829791 Z12.31 Screening for malignant neoplasm of cervix 210816469 Z12.4 per pt had PAP 10/2017 Screening for malignant neoplasm of colon 338783427 Z12.11 last C scope 12/04/17 , good for 5 years per pt Active or passive immunization 479948601 Z23 [id number] Kim Mota MD [facility] [address] [place] [address] 04/30/2020 09:37:52 04/30/2020 11:03:27 Benign hypertension 35770356 I10 per pt had optometry eval 07/2019inc rease telmisarta n QAM , BP 2-3 weekslast EKG 09/09/19 Asthma 858168347 J45.90 9 Body mass index 40+ - severely obese 100847228 Z68.42 educationl ost 6 LBs on diet Gastroesop hageal reflux disease 737436507 K21.9 education about senior living use PPI Hyperlipidemia 47737906 E78.5 refuse crestor OR any chol meds Hypothyroidism 01559838 E03.9 Kidney stone 75535440 N2 0.0 Left ventr icular hypertrophy 84310890 I51.7 on ECHO 01/19/11 //will recheck Osteoarthritis 576324184 M19.90 fair control with OTC PRN Screening mammography 24 357443 Z12.31 Screening for malignant neoplasm of cervix 134042471 Z12.4 per pt had PAP 10/2017 Screening for malignant neoplasm of colon 536807233 Z12.11 last C scope 12/04/17 , good for 5 years per pt Active or passive immunization 816209215 Z23 [id number] Kim Moat MD [employer], [facility] [address] [place] [address] 08/19/2020 10:52:01 08/19/2020 11:15:08 Benign hypertension 80527991 I10 per pt had optometry eval 07/2019add felodipine , BP 2-3 weekslast EKG 09/09/19 Hyperlipidemia 78618647 E78.5 refuse crestor OR any chol meds Kidney stone 83542208 N2 0.0 Hypothyroidism 11745530 E03.9 Body mass index 40+ - severely obese 065552198 Z68.42 education on diet Asthma 358794193 J45.90 9 Screening mammography 24 167717 Z12.31 Screening for malignant neoplasm of cervix 669879269 Z12.4 per pt had PAP 04/2020 Screening for malignant neoplasm of colon 132897238 Z12.11 last C scope 12/04/17 , good for 5 years per pt Active or passive immunization 692368455 Z23 Angioedema 70336196 T78. 3XXA Allergic r hinitis caused by pollen 86053727 J30.1 [id number] Kim Mota MD [employer], [facility] [address] [place] [address] 03/19/2021 09:20:10 03/19/2021 10:11:26 Adult health examination 411034202 Z00.01 Benign hypertension 1072 5009 I10 per pt had optometry eval 07/2019add felodipine , BP 2-3 weekslast EKG 09/09/19 Asthma 713404917 J45.90 9 last PFT 04/30/20 Allergic r hinitis caused by pollen 95150087 J30.1 sees allergy Body mass index 40+ - severely obese 714595862 Z68.42 education on diet Gastroesop hageal reflux disease 084275611 K21.9 education about senior living use PPI Hyperlipidemia 25188205 E78.5 refuse crestor OR any chol medslast LDL 01/01/21 Hypothyroidism 30726317 E03.9 Kidney stone 99241957 N2 0.0 last KUB 06/07/20 Left atria l enlargement 6975120549 9109 I51.7 on ECHO 2010 , recheck Left ventr icular hypertrophy 73026713 I51.7 on ECHO 01/19/11 /will recheck Osteoarthritis 479006018 M19.90 fair control with OTC PRN Screening mammography 24 828067 Z12.31 Screening for malignant neoplasm of cervix 339192804 Z12.4 per pt had PAP 04/2020 Screening for malignant neoplasm of colon 536059643 Z12.11 last C scope 12/04/17 , good for 5 years per pt Active or passive immunization 857062179 Z23 up to date [id number] Kim Mota MD [facility], [facility] [address] [place] [address] 02/23/2022 18:08:34 02/23/2022 19:14:17 Benign hypertension 55959704 I10 per pt had optometry eval 07/2019add felodipine , BP 2-3 weekslast EKG 09/09/19 Asthma 640332695 J45.90 9 last PFT 04/30/20 Body mass index 40+ - severely obese 067127520 Z68.42 education on diet Hyperlipidemia 35553976 E78.5 refuse crestor OR any chol medslast LDL 01/01/21 Hypothyroidism 92654344 E03.9 Left atria l enlargement 6717628221 9109 I51.7 on ECHO 2010 , recheck Kidney stone 14432933 N2 0.0 last KUB 06/07/20 Screening mammography 24 586781 Z12.31 Screening for malignant neoplasm of cervix 826054505 Z12.4 per pt had PAP 04/2020 Screening for malignant neoplasm of colon 080293914 Z12.11 last C scope 12/04/17 , good for 5 years per pt Active or passive immunization 144218776 Z23 up to date [id number] Kim Mota MD [employer], [facility] [address] [place] [address] 10/21/2022 09:25:14 10/21/2022 11:15:33 Adult health examination 756887584 Z00.01 Benign hypertension 1072 5009 I10 per pt had optometry eval 07/2019add felodipine , BP 2-3 weekslast EKG 09/09/19 Asthma 482171489 J45.90 9 last PFT 04/30/20 Allergic r hinitis caused by pollen 65879742 J30.1 sees allergy Body mass index 40+ - severely obese 633788756 Z68.42 education on diet Hyperlipidemia 39548124 E78.5 refuse crestor OR any chol medslast LDL 01/01/21 Gastroesop hageal reflux disease 381781311 K21.9 education about bed bug exterminator use PPI Hypothyroidism 60907671 E03.9 Kidney stone 04666248 N2 0.0 last KUB 06/07/20 Left atria l enlargement 2257013785 9109 I51.7 on ECHO 2010 , recheck Osteoarthritis 783273336 M19.90 fair control with OTC PRN Screening mammography 24 304891 Z12.31 Screening for malignant neoplasm of cervix 506762128 Z12.4 per pt had PAP 04/2020 Screening for malignant neoplasm of colon 551523560 Z12.11 last C scope 12/04/17 , good for 5 years per pt Active or passive immunization 751987746 Z23 up to date History of multiple allergies 870236962 Z88.9 [id number] Kim Mota MD [employer], [facility] [address] [place] [address] 04/10/2023 09:23:34 04/10/2023 10:38:30 Benign hypertension 46551416 I10 per pt had optometry eval 07/2019add felodipine , BP 2-3 weekslast EKG 10/21/22 Body mass index 40+ - severely obese 573640412 Z68.42 education on diet Gastroesop hageal reflux disease 495849063 K21.9 education about bed bug exterminator use PPI Hyperlipidemia 49766610 E78.5 refuse crestor OR any chol medslast LDL 01/01/21 Kidney stone 76761165 N2 0.0 last KUB 06/07/20 Hypothyroidism 27166425 E03.9 Asthma 302996657 J45.90 9 last PFT 04/30/20 Left atria l enlargement 5187375478 9109 I51.7 on ECHO 2010 , recheck Arthritis of hand 862415 005 M13.849 Screening mammography 24 228880 Z12. Screening for malignant neoplasm of cervix 248267887 Z12.4 per pt had PAP 12/2022 Screening for malignant neoplasm of colon 046153165 Z12.11 last C scope 12/04/17 , good for 5 years per pt Active or passive immunization 669632844 Z23 up to date [id number] Kim Mota MD [facility] [address] [place] [address] 08/14/2023 09:37:36 08/14/2023 10:33:09 Benign hypertension 82162745 I10 per pt had optometry eval 07/2019add felodipine , BP 2-3 weekslast EKG 10/21/22 Congestion of nasal sinus 34791805 R09.81 Gastroesop hageal reflux disease without esophagitis 953460607 K21.9 Mixed anxi ety and depressive disorder 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 Asthma 115552899 J45.90 9 last PFT 04/10/23 Body mass index 40+ - severely obese 804388500 Z68.42 education on diet Hypothyroidism 80842374 E03.9 Hyperlipidemia 20873273 E78.5 refuse crestor OR any chol medslast LDL 01/01/21 Mammography abnormal 168 838272 R92.8 Lt diagnostic 04/2023 was NL Screening mammography 24 658575 Z12.31 04/10/23 Screening for malignant neoplasm of cervix 411406039 Z12.4 per pt had PAP 12/2022 Screening for malignant neoplasm of colon 386666735 Z12.11 last C scope 12/04/17 , good for 5 years per pt Active or passive immunization 638926648 Z23 up to date [id number] Kim Mota MD [employer], [facility] [address] [place] [address] 11/20/2023 10:29:36 11/20/2023 12:21:36 Adult health examination 878749510 Z00.01 Benign hypertension 1072 5009 I10 per pt had optometry eval 07/2019add felodipine , BP 2-3 weekslast EKG 10/21/22 Asthma 801953833 J45.90 9 last PFT 04/10/23 Allergic r hinitis caused by pollen 42151350 J30.1 sees allergy Body mass index 40+ - severely obese 121949084 Z68.42 education on diet Gastroesop hageal reflux disease 165132092 K21.9 education about bed bug exterminator use PPI Hyperlipidemia 16513942 E78.5 refuse crestor OR any chol medslast LDL 01/01/21 Hypothyroidism 52465518 E03.9 Kidney stone 33143335 N2 0.0 last KUB 04/10/23 Left ventr icular hypertrophy 57697563 I51.7 on ECHO 01/19/11will recheck Mammography abnormal 168 327645 R92.8 Lt diagnostic 04/2023 was NL Mixed anxi ety and depressive disorder 203010315 F41.8 No SI , No HI Osteoarthritis 711926240 M19.90 fair control with OTC PRN Screening mammography 24 070052 Z12.31 04/10/23 Screening for malignant neoplasm of cervix 845600869 Z12.4 per pt had PAP 12/2022 Screening for malignant neoplasm of colon 025845385 Z12.11 last C scope 12/04/17 , good for 5 years per pt Active or passive immunization 533770159 Z23 up to date Advance di rective discussed with patient 163798051 Z71.89 education [id number] Kim Mota MD [facility] [address] [place] [address] 08/01/2024 12:06:35 08/01/2024 13:23:32 Benign hypertension 31377484 I10 per pt had optometry eval 07/2019add felodipine , BP 2-3 weekslast EKG 11/22/23 Body mass index 40+ - severely obese 066101285 Z68.42 education on diet Asthma 466805317 J45.90 9 last PFT 04/10/23 Gastroesop hageal reflux disease 524645043 K21.9 education about senior living use PPI Hyperlipidemia 08450832 E78.5 refuse crestor OR any chol medslast LDL 11/20/23 Hypothyroidism 67500665 E03.9 Kidney stone 00870359 N2 0.0 last KUB 04/10/23 Mammography abnormal 168 621240 R92.8 Lt diagnostic 04/2023 was NL Osteoarthritis 988809958 M19.90 fair control with OTC PRN Electrocar diogram abnormal 342080406 R94.31 Screening mammography 24 591820 Z12.31 04/10/23 Screening for malignant neoplasm of cervix 222046584 Z12.4 per pt had PAP 12/2022 Screening for malignant neoplasm of colon 242812796 Z12.11 last C scope 12/04/17 , good for 5 years per pt Active or passive immunization 950883678 Z23 up to date Pain of ri ght knee region 0655058191 53994 M25.561 Benign par oxysmal positional vertigo 750909840 H81.10 Health Concerns Section Related Observation LastModified by Organization Detai ls LastModified Time None Recorded Concern Status LastModified by Organization Details LastModified Time None Recorded Advance Directives Directive N: Payers Encounter Date Sequence Insurance Name Policy Number Policy Villarreal Covered Member ID Villarreal Member ID Guarantor Name 10/21/2022 1 [employer] (POS) [id number] Lotus L Theresa [id number] Lotus L Theresa 04/10/2023 1 [employer] (POS) [id number] Lotus L Theresa [id number] Lotus L Theresa 08/14/2023 1 [employer] (POS) [id number] Lotus L Theresa [id number] Lotus L Theresa 11/20/2023 1 [employer] (POS) [id number] Lotus L Theresa [id number] Lotus L Theresa 08/01/2024 1 [employer] (POS) [id number] Lotus Cardenas [id number] Lotus Cardenas Notes Date Note Type Note Provider Name and Address Organization Details Recorded Time 10/21/2022 text/html Hypertension F/UReported bypatient.Medications: taking medications as directed; no side effects from medication Lifestyle:regular exercise; limiting/avoiding salt; compliant with low salt diet Associated Symptoms:no dizziness; no lightheadedness; no chest pain; no shortness of breath; no palpitations; no edema; no calf pain with exertion; no headacheMedicare Annual Wellness VisitReported bypatient.Diet and Nutrition:healthy diet Fracture Risk:no history of fractures; no recent explained fracture; no sudden unexplained fractures; no previous musculoskeletal injuries Physical Activity:recent increase in physical activity; good physical condition; discussed exercise habits Depression Risk:never feels sad, empty, or tearful; no loss of interest in activities; no significant changes in weight; no sleep disturbances or insomnia; no agitation; no loss of energy; no feelings of worthlessness or guilt; no thoughts of suicide; no history of depression; no history of mood disorders Orientation:no disorientation to time; no disorientation to date; no disorientation to place Concentration and Memory:no decreased concentrating ability; no memory lapses or loss; does not forget words Speech/Motor difficulties:no speech difficulties; no difficulty expressing formulated concepts; no difficulty with fine manipulative tasks; no difficulty writing/copying; no slowed reaction time; does not knock things over when trying to pick them up Hearing:no loss of hearing Vision:no vision problems Falls Risk Assessment:no frequent falls while walking; no fall in the past year; no fall since last visit; no dizziness/vertigo Home Safety:use of seatbelts; no vision or hearing loss while driving Kim Mota MD [address] [place] [address] [address], [place], [address], [facility] 10/21/2022 10:58:52 04/10/2023 text/html Hypertension F/UReported bypatient.Medications: taking medications as directed; no side effects from medication Lifestyle:regular exercise; limiting/avoiding salt; compliant with low salt diet Associated Symptoms:no dizziness; no lightheadedness; no chest pain; no shortness of breath; no palpitations; no edema; no calf pain with exertion; no headache Kim Mota MD [address], [place], [address], [facility] 04/10/2023 10:16:09 08/14/2023 text/html Hypertension F/UReported bypatient.Medications: taking medications as directed; no side effects from medication Lifestyle:regular exercise; limiting/avoiding salt; compliant with low salt diet Associated Symptoms:no dizziness; no lightheadedness; no chest pain; no shortness of breath; no palpitations; no edema; no calf pain with exertion; no headache Kim Mota MD [address], [place], [address], [facility] 08/14/2023 10:24:42 11/20/2023 text/html Hypertension F/UReported bypatient.Medications: taking medications as directed; no side effects from medication Lifestyle:regular exercise; limiting/avoiding salt; compliant with low salt diet Associated Symptoms:no dizziness; no lightheadedness; no chest pain; no shortness of breath; no palpitations; no edema; no calf pain with exertion; no headacheMedicare Annual Wellness VisitReported bypatient.Diet and Nutrition:healthy diet Fracture Risk:no history of fractures; no recent explained fracture; no sudden unexplained fractures; no previous musculoskeletal injuries Physical Activity:recent increase in physical activity; good physical condition; discussed exercise habits Depression Risk:never feels sad, empty, or tearful; no loss of interest in activities; no significant changes in weight; no sleep disturbances or insomnia; no agitation; no loss of energy; no feelings of worthlessness or guilt; no thoughts of suicide; no history of depression; no history of mood disorders Orientation:no disorientation to time; no disorientation to date; no disorientation to place Concentration and Memory:no decreased concentrating ability; no memory lapses or loss; does not forget words Speech/Motor difficulties:no speech difficulties; no difficulty expressing formulated concepts; no difficulty with fine manipulative tasks; no difficulty writing/copying; no slowed reaction time; does not knock things over when trying to pick them up Hearing:no loss of hearing Vision:no vision problems Falls Risk Assessment:no frequent falls while walking; no fall in the past year; no fall since last visit; no dizziness/vertigo Home Safety:use of seatbelts; no vision or hearing loss while driving Kim Mota MD [address] [facility] [address], [place], [address], [facility] 11/20/2023 11:55:07 08/01/2024 text/html Hypertension F/UReported bypatient.Medications: taking medications as directed; no side effects from medication Lifestyle:regular exercise; limiting/avoiding salt; compliant with low salt diet Associated Symptoms:no dizziness; no lightheadedness; no chest pain; no shortness of breath; no palpitations; no edema; no calf pain with exertion; no headache Kim Mota MD [address] [facility] [address], [place], [address], [facility] 08/01/2024 13:13:37 OBGyn Episode No OBEpisode recorded.
[2024-10-23 00:23] VITALS: BP 200/84; PULSE 81; RESP 20; TEMP 36.4; O2SAT 100
--- NOTE | 2024-10-23 01:30 | PC.NURSE ---
pt approached triage desk stating that she was going to leave due to wait times. Pt advised to be seen at nearest facility if she feels it to be necessary. Pt ambulated to ED exit with steady gait and no signs for concern at this time.
== END 2024-10-23 01:51 | disposition left against medical advice (07) ==
PROVIDERS: PCP Internal Medicine
DX: M54.9 Dorsalgia, unspecified (principal)
CPT/HCPCS: 99199